=== PATIENT | female | born 1945 | race Caucasian/White ===

== ENCOUNTER 2016-12-03 13:02 | Emergency (ER) | payer OTHER ==
--- NOTE | 2016-12-03 14:10 | DIAGNOSTIC IMAGING REPORT ---
PROCEDURE: CT HEAD WITHOUT CONTRAST INDICATION: STROKE, confusion TECHNIQUE: Axial CT images were acquired through the head. Coronal and sagittal reformations were created. COMPARISON: None. FINDINGS: Subtle changes of loss of sherwood-white matter differentiation in the left parietal region. No mass effect or midline shift. No hemorrhage. Mild cerebral cortical atrophy. Moderate to prominent patchy hypodensity in the periventricular and subcortical white matter. Focal left frontal cortical defect and white matter gliosis. Small right caudate head lacunar infarct. Ventricles are normal in size, shape and position. Mild calcific atherosclerosis of the intracranial internal carotid arteries. Right frontotemporal craniotomy defect and left frontoparietal craniotomy defect with fixation hardware. The paranasal sinuses and mastoid air cells are normally aerated. The extracranial soft tissues and orbits are normal. IMPRESSION: 1. Subtle findings of possible edema in the left parietal region. No hemorrhage or mass effect. MRI is recommended. 2. Evidence of prior left frontal cortical infarct and a small right caudate head lacunar infarct superimposed on moderate to prominent chronic small vessel ischemic changes in the white matter. 3. Bilateral craniotomy defects. 4. Findings discussed with Dr. Thomas at [address] scans at this facility use dose modulation, iterative reconstruction, and/or weight-based dosing when appropriate to reduce radiation dose to as low as reasonably achievable.
--- NOTE | 2016-12-03 16:04 | DIAGNOSTIC IMAGING REPORT ---
PROCEDURE: MR BRAIN WITHOUT CONTRAST INDICATION: CVA TECHNIQUE: Multiplanar multisequence MRI imaging of the brain without contrast. COMPARISON: Head CT same date FINDINGS: Atrophy with periventricular small-vessel ischemic disease. There is an old lacunar infarct in the caudate on the right. No restricted diffusion to suggest acute ischemia. No evidence of acute or chronic intraparenchymal or extra-axial hemorrhage. No mass, mass effect, or midline shift. Bilateral craniotomy defects The sinuses are normally aerated. Visible extracranial soft tissues including the orbits are normal. IMPRESSION: 1. Atrophy with periventricular small-vessel ischemic disease. 2. No acute infarct. 3. Results were called to Martha at 04:00 p.m.
--- NOTE | 2016-12-03 16:13 | ED CLINICAL REPORT ---
Clinical Report - Physicians/Mid Levels [facility] [address] [place] [place] [address] 12/03/2016 13:03 Patient: DAHIANA ROJAS Time Seen: 13:15. Arrived- By private vehicle. Historian- patient. HISTORY OF PRESENT ILLNESS Chief Complaint: WEAKNESS. The patient has had weakness, (PT states she did not feel any different than usual, but her visiting nurse felt that the pt seemed weaker than normal yesterday. When the nurse saw the pt again today, she felt that the pt still seemed to have increased L-sided deficits, and called EMS. Pt states she feels fine.). No numbness, tingling, impaired speech or swallowing or visual disturbance. She has had difficulty walking (chronically--not worsened). She has had a recent fall (about 1 week ago). This started yesterday and is now gone. At its maximum deficit described as mild. When seen in the E.D., deficit described as mild. No dizziness, altered mental status, seizure or blackouts. Usually is alert and oriented X3. She usually walks using a walker. 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 She states that it is mainly her face and her left lower extremity that are affected.). Recent medical care: Not recently seen/assessed. REVIEW OF SYSTEMS No fever, headache, head injury, chest pain or difficulty breathing. No cough, sputum production, sore throat, abdominal pain or nausea. No diarrhea, black stools, difficulty with urination, skin rash or enlarged lymph nodes. No joint pain, vomiting, bloody stools or back pain. All systems otherwise negative, except as recorded above. PAST HISTORY Problems: Hypercholesterolemia. Constipation. Hypertension. Seizure. CVA - Cerebrovascular Accident. Additional Surgeries: Appendectomy. Craniotomy. Hysterectomy. Medications: ASA/Dipyrida 25/200mg BID. Metoprolol ER 50 mg Q AM. Senna 8.6 mg BID. Levetiracetam 500 mg BID. Amlodipine 10 mg Q AM. Lisinopril 40 mg Q AM. Lamotrigine 150mg BID. Atorvastatin 20 mg QHS. Allergies: No Known Drug Allergy. SOCIAL HISTORY Never smoker. No alcohol use or drug use. ADDITIONAL NOTES The nursing notes have been reviewed. PHYSICAL EXAM Vital Signs: 12/03/2016 13:07 BP: 115/65. HR: 74. RR: 16. O2 saturation: 98%. Temp: 98.3 F. Pain level now: 0/10. Have been reviewed. Appearance: Alert. No acute distress. Head: Head atraumatic. Eyes: Pupils equal, round and reactive to light. ENT: Airway intact. Neck: Normal inspection. CVS: Normal heart rate and rhythm. Heart sounds normal. Pulses normal. Respiratory: No respiratory distress. Breath sounds normal. Abdomen: Soft and nontender. Back: Normal inspection. No CVA tenderness. Skin: Skin warm and dry. Normal skin color. No rash. Normal skin turgor. Extremities: Extremities exhibit normal ROM. No lower extremity edema. Neuro: Alert. Oriented X 3. Mood/affect normal. Speech normal. Cranial nerves normal (as tested). No cerebellar findings. She has had weakness of the left face (moderate), left arm (mild) and left leg (moderate), No left hand weakness or left foot weakness. No sensory deficit. LABS, X-RAYS, AND EKG EKG: EKG time: (1319). No acute process. No acute ischemia. Normal EKG. Normal sinus rhythm. Rate: 71. Normal P waves. Normal VERONICA. Normal QRS complex. Normal axis. Normal ST and T waves, QT and QTc. Prior EKG unavailable. The study has been interpreted contemporaneously by me. The study has been independently viewed by me. The EKG appears to be a good tracing. I agree with and confirm the computer reading of the EKG. Rhythm Strip #1: Time: (1315). Rate= 74. Normal sinus rhythm. Regular rhythm. Narrow QRS complexes. No ectopy. Conduction normal. Normal ST segments and T waves. The study was interpreted by me. CT Head: (1. Subtle findings of possible edema in the left parietal region. No hemorrhage or mass effect. MRI is recommended. 2. Evidence of prior left frontal cortical infarct and a small right caudate head lacunar infarct superimposed on moderate to prominent chronic small vessel ischemic changes in the white matter. 3. Bilateral craniotomy defects. 4. Findings discussed with Dr. Thomas at [address] performed without contrast. The study was independently viewed by me, interpreted by the radiologist and contemporaneously by me and discussed with the radiologist. Prior studies were not available for comparison. MRI Brain: No acute changes. No hemorrhage. No intracranial mass. No midline shift. No hydrocephalus or bony abnormalities. Study type: MRI without contrast. The study was independently viewed by me, interpreted by the radiologist and contemporaneously by me and discussed with the radiologist. Prior studies were not available for comparison. Laboratory Tests: UA-Culture if indicated: (LILLY: 12/03/2016 13:38) ( Mscvd 12/03/2016 13:59) Final results Test Result Flag Units (Reference) URINE COLOR YELLOW URINE APPEARANCE CLEAR URINE GLUCOSE NEGATIVE (NEGATIVE) URINE BILIRUBIN NEGATIVE (NEGATIVE) URINE KETONE NEGATIVE (NEGATIVE) URINE SPECIFIC GRAVITY 1.010 (1.010-1.030) URINE PH 6.0 (5.0-8.0) URINE PROTEIN NEGATIVE (NEGATIVE) URINE UROBILINOGEN 0.2 EU/dL (0.2-1.0) URINE NITRITE NEGATIVE (NEGATIVE) URINE BLOOD TRACE-INTACT (NEGATIVE) URINE LEUK ESTERASE NEGATIVE (NEGATIVE) URINE RBC 0-1 rbc/hpf (0-1) CATH URINETRANSITIONAL EPITHELIAL CELLS 0-1/HPF URINE WBC 0-1 wbc/hpf (0-1) URINE EPITHELIAL CELLS 1-3 EPI/hpf (0-5) URINE BACTERIA TRACE (<1+) (NONE SEEN) URINE COMMENT CULT NOT INDICATED URINE CULTURES ARE SET-UP BASED ON THE FOLLOWING CRITERIA:POSITIVE NITRITEPOSITIVE LEUKOCYTE ESTERASEGREATER THAN 10 WHITE BLOOD CELLSMODERATE (2+) OR GREATER BACTERIA CBC w Diff: (LILLY: 12/03/2016 13:15) ( MsgRcvd 12/03/2016 13:34) Final results Test Result Flag Units (Reference) WHITE BLOOD COUNT 5.6 K/uL (4.5-11.5) RED BLOOD COUNT 4.03 M/uL (4.00-5.20) HEMOGLOBIN 12.4 gm/dL (12.0-16.0) HEMATOCRIT 37.9 % (36.0-46.0) MEAN CELL VOLUME 94 fL (80-100) MEAN CORPUSCULAR HGB 31 pg (26-34) MEAN CORPUSCULAR HGB CONC 33 g/dL (31-37) RED CELL DISTRIBUTION WIDTH 14.8 % (11.6-14.8) PLATELET COUNT 208 K/uL (150-400) NEUTROPHIL % 65.3 % (50-75) LYMPH % 26.4 % (25-40) MONO % 6.7 % (3-14) EOSINOPHIL % 1.2 % (0-4) BASOPHIL % 0.4 % (0-2) PT with INR: (LILLY: 12/03/2016 13:15) ( [facility] 12/03/2016 13:48) Final results Test Result Flag Units (Reference) INR 1.0 (0.8-1.2) Low Intensity Therapy: INR 1.5-2.0 PT range 18.5-23.1Mod.Intensity Therapy: INR 2.0-3.0 PT range 23.1-31.5High Intensity Therapy: INR 2.5-3.5 PT range 27.4-35.5High Intensity Therapy 2: INR 3.0-4.0 PT range 31.5-39.3 CHEM 13 PANEL: (LILLY: 12/03/2016 13:15) ( [facility] 12/03/2016 13:54) Final results Test Result Flag Units (Reference) GLUCOSE 92 mg/dL (70-110) BUN 12 mg/dL (7-18) CREATININE 1.1 mg/dL (0.6-1.3) Estimated GFR 52.04 mL/min Estimated GFR- >60 mL/min Note: Persistent reduction over 3 months in eGFR<60 mL/min/1.73 m2 defines CKD. Patients with eGFR values>=60 mL/min/1.73 m2 may also have CKD if evidence ofpersistent proteinuria. Additional information may be foundat www.kidney.org. SODIUM 143 mmol/L (136-145) POTASSIUM 4.4 mmol/L (3.5-5.1) CHLORIDE 107 mmol/L (98-107) CARBON DIOXIDE 26 mmol/L (21-32) CALCIUM 9.1 mg/dL (8.5-10.1) TOTAL PROTEIN 6.9 g/dL (6.4-8.2) ALBUMIN 3.8 g/dL (3.3-5.0) BILIRUBIN, TOTAL 0.4 mg/dL (0.0-1.0) ALKALINE PHOSPHATASE 70 U/L (46-116) AST (SGOT) 18 U/L (15-37) ALT (SGPT) 17 U/L (12-78) MAGNESIUM 2.3 mg/dL (1.8-2.4) CPK 43 U/L (24-260) TROPONIN I 0.05 ng/mL (0.00-1.5) TROPONIN REFERENCE RANGE:<0.1 NEGATIVE0.1-1.5 INDETERMINANT>1.5 POSITIVE . Pulse Oximetry: 12/03/2016 13:07 O2 saturation: 98%. (FIO2 - room air). Interpretation: normal. PROGRESS AND PROCEDURES Course of Care: The patient was feeling quite well at the time of her arrival in the emergency department. However given her history she was worked up for CVA and other possible causes of decline. Her CT scan showed findings concerning for possible edema in the left parietal region. As such the radiologist did recommend an MRI for further clarification of this finding. This was done, and showed no acute ischemia. I did feel the pt was stable for d/c home, as no emergent condition was identified. Patient counseled in person regarding the patient's stable condition, test results, diagnosis and need for follow-up. Concerns were addressed. Old medical records reviewed. Disposition: Discharged. Condition: stable. CLINICAL IMPRESSION Chronic weakness of the left face and left lower extremity. (with acute exacerbation). INSTRUCTIONS (Your MRI looks good--no new strokes!). Warnings: GENERAL WARNINGS: Return or contact your physician immediately if your condition worsens or changes unexpectedly, if not improving as expected, or if other problems arise. Your Current Medications: CONTINUE TAKING THE FOLLOWING MEDICATIONS: Amlodipine 10 mg Q AM*. ASA/Dipyrida 25/200mg BID*. Atorvastatin 20 mg QHS*. Lamotrigine 150mg BID*. Levetiracetam 500 mg BID*. Lisinopril 40 mg Q AM*. Metoprolol ER 50 mg Q AM*. Senna 8.6 mg BID*. Follow-up: Follow up with your doctor as needed. Understanding of the discharge instructions verbalized by patient. (Electronically signed by Dahiana Thomas MD 12/08/2016 21:58)
--- NOTE | 2016-12-03 16:13 | ED NURSING NOTES ---
Clinical Report - Nurses [place] [address] [place] [address] 12/03/2016 13:03 [id number] TRI[facility] Triage time 13:Dec 03 2016. Acuity: LEVEL 3. Chief Complaint: WEAKNESS, DIFFICULTY STANDING and DIFFICULTY WALKING. Alert. No acute distress. SEPSIS SCREEN: Sepsis Screen. Negative (no infection suspected/documented). SAMY COMA SCORE: Bruin Coma Scale: 15- eyes open spontaneously (4); best verbal response- oriented x 4 (5); best motor response- obeys commands (6). --13:13 Kaiser Jiménez R.N. 13:07 12/03/16. BP: 115/65. HR: 74. RR: 16. O2 saturation: 98% on room air. Temp: 98.3 F. Pain level now: 0/10. --13:13 Kaiser Jiménez R.N. Weight: 65.7 kg stated. Height/Length: 65 inches Per Patient. BMI: 24.1. --13:07 Kaiser Jiménez R.N. Medications Atorvastatin 20 mg QHS. --13:41 Kaiser Jiménez R.N. Lamotrigine 150mg BID. --13:41 Kaiser Jiménez R.N. Lisinopril 40 mg Q AM. --13:41 Kaiser Jiménez R.N. Amlodipine 10 mg Q AM. --13:41 Kaiser Jiménez R.N. Levetiracetam 500 mg BID. --13:42 Kaiser Jiménez R.N. Senna 8.6 mg BID. --13:42 Kaiser Jiménez R.N. Metoprolol ER 50 mg Q AM. --13:42 Kaiser Jiménez R.N. ASA/Dipyrida 25/200mg BID. --13:42 Kaiser Jiménez R.N. Allergies No Known Drug Allergy. --13:08 Kaiser Jiménez R.N. History Arrived by EMS. Historian: (EMS). Primary physician (Dr. Clark). This started yesterday. Patient was last known well (Yesterday afternoon). ( Pt has a hx of 2 previous CVA's, last in 2014. Pt has a baseline deficit of left-sided weakness, L facial droop. Pt went to PT yesterday and suddenly experienced a rapid decline of weakness, Pt was unable to make it to the door to buzz in her Physical Therapist d/t weakness.). ( Pt denies any new symptoms.). Treatment BRASS MOLDER: None. PAST MEDICAL HX: Two episodes of stroke last in 2014 with residual deficit. Immunizations: up-to-date. SURGERY HX: Appendectomy. Had hysterectomy. SOCIAL HX: Never smoker. No alcohol use or drug use. No infectious disease exposure. --13:13 Kaiser Jiménez R.N. SURGERY HX: Craniotomy. --15:53 Kaiser Jiménez R.N. PROBLEMS: Constipation. Hypertension. Seizure. --13:45 Kaiser Jiménez R.N. Hypercholesterolemia. --13:45 Kaiser Jiménez R.N. Interventions ID band on patient. --13:13 Kaiser Jiménez R.N. PHYSICAL ASSESSMENT To room via stretcher. GENERAL / NEURO / PSYCH: Awake. Oriented X 4. Alert. Appears in no acute distress. Speech normal. Mood/affect normal. Strength is unequal; right transportation planner is greater than the left transportation planner. She has had pre-existing weakness (Left sided generalized). HEENT: Facial asymmetry present. ( L sided facial droop (this is not new to Pt.)). RESPIRATORY: Respirations not labored. CVS: Normal sinus rhythm noted. SKIN: Skin is intact, warm and dry. --13:15 Kaiser Jiménez R.N. GENERAL / NEURO / PSYCH: NIH Stroke Scale: score 2. Performed at 13:28. Level of Consciousness: alert (0). LOC Questions: both (0). LOC Commands: both (0). Best gaze: normal (0). Visual field loss: none (0). Facial palsy: minor (1). Motor arm: no drift right arm (0) and no drift left arm (0). Motor leg: no drift right leg (0) and no drift left leg (0). Limb ataxia: none (0). Sensory loss: none (0). Aphasia: mild to moderate (1). Dysarthria: normal (0). Extinction and inattention: none (0). --13:28 Kaiser Jiménez R.N. NURSING PROGRESS NOTES The plan of care for this patient has been created. Monitoring of patient in place. Patient gowned. Head of bed elevated. Reassurance given. Two patient identifiers checked. Call light placed in reach. Side rails up x 2. Bed placed in lowest position. Patient ready for evaluation- chart flagged and ED physician notified. ( Pt stable, cooperative, EKG in progress, IV placed.). --13:15 Kaiser Jiménez R.N. Finger stick glucose: 91 mg/dL 13:24 Dec 03 2016; performed by nurse. --13:24 Kaiser Jiménez R.N. 13:24 12/03/2016 Site #1 started via IV in the right antecubital space with an 20g angiocath, with aseptic technique and good blood return; one attempt. Blood drawn: rainbow set. Labeled in the presence of the patient and sent to the lab. Saline lock flushed with 10 mL saline. --13:29 Kaiser Jiménez R.N. EKG time: (13:19). EKG was performed by a tech and shown to the ED physician. --13:39 Marlene Jay In/out catheterization. Return of less than 50 mL yellow-colored urine. She tolerated procedure well. --13:41 Kaiser Jiménez R.N. Patient transported to CT by stretcher with tech. (13:43 Dec 03 2016). --13:43 Kaiser Jiménez R.N. Patient returned from CT by stretcher with tech. (13:51 Dec 03 2016). --13:51 Kaiser Jiménez R.N. ( MRI consent forms given to patient to fill out.). --14:20 Wendy Quintero ( Pt has been resting comfortably, MRI consent obtained by RN and tech, accompanied Pt to MRI with tech.). --14:38 Kaiser Jiménez R.N. 14:00 12/03/16. BP: 104/51. HR: 72. RR: 19. O2 saturation: 100% on room air. Pain level now: 0/10. --14:39 Kaiser Jiménez R.N. 15:20. Patient returned from MRI by stretcher with nurse. --15:24 Parish Cruz R.N. Patient returned from MRI by stretcher with nurse and tech. (15:Dec 03 2016). --15:31 Kaiser Jiménez R.N. 15:33 12/03/16. BP: 107/51. HR: 68. RR: 16. O2 saturation: 100% on room air. Pain level now: 0/10. --15:33 Kaiser Jiménez R.N. ( Pt is resting comfortably, denies any needs or distress, stated that we can call her sister when it is time for her to DC, awaiting report from Radiologist.). --15:33 Kaiser Jiménez R.N. ( Orders for DC. Obtained Pt's sister's phone # to coordinate a ride home for Pt. Pt denies needs, VSS.). --16:34 Kaiser Jiménez R.N. 16:33 12/03/16. BP: 112/47. HR: 72. RR: 16. O2 saturation: 100% on room air. --16:34 Kaiser Jiménez R.N. ( Unable to contact any of Pt's family members to have them take her home. Pt does not know her 's new phone # and her sister has not answered after several phone calls, her next of kin has also not answered, no message machines available. I have discussed the option of having Pt transported via [facility]. Pt has agreed, states someone will be home to receive her when arrives. DISABILITY CASE MANAGER in the process of calling [facility] now.). --17:09 Kaiser Jiménez R.N. DISPOSITION / DISCHARGE 17:28 12/03/16. BP: 121/53. HR: 69. RR: 16. O2 saturation: 97% on room air. Temp: 97.9 F. Pain level now: 0/10. --17:29 Kaiser Jiménez R.N. ( Assisted Pt up to restroom. Pt ambulatory but very unsteady on her feet, required definite 1 person assistance.). --17:31 Kaiser Jiménez R.N. Departure time: 18:28 Dec 03 2016. ( Patient dc'd home with [facility] for ride.). --18:28 Forest Aguirre R.N. 18:24 12/03/2016 Site #1 removed upon discharge. Catheter intact. Pressure dressing applied. --18:29 Forest Aguirre R.N. Locked/Released at 12/03/2016 19:33 by Forest Aguirre R.N.
--- NOTE | 2016-12-03 16:13 | ED ORDER SUMMARY ---
..... Patient: DAHIANA ROJAS OrderSheet [facility] VisitID: [id number] [place] [address] 71y, F Registration Date/Time: 12/03/2016 ORDER SHEET Weight: 65.7 kg (stated) Allergies: No Known Drug Allergy GENERAL ORDERS: Hat Brusher Machine (Continuous) (13:12/03/2016 Duong QUIROS) (Ack 13:28 Lalito) (13:29 MCook R.N.) CT Head wo Cont Urgent (13:12/03/2016 Duong QUIROS) (Ack 13:29 Lalito) (14:25 MCook R.N.) Cardiac Panel Stat (:12/03/2016 Duong QUIROS) (Ack 13:29 Lalito) (13:29 MCook R.N.) PT with INR Urgent (13:12/03/2016 Duong QUIROS) (Ack 13:29 Lalito) (13:29 MCook R.N.) UA-Culture if indicated Urgent (13:12/03/2016 Duong QUIROS) (Ack 13:29 Lalito) (13:40 MCook R.N.) Oxygen (2 L/min) (NC) (13:12/03/2016 Duong QUIROS) (Ack 13:28 Lalito) Pulse oximeter (13:12/03/2016 Duong QUIROS) (Ack 13:28 Lalito) (13:29 MCook R.N.) EKG - ER Stat (13:12/03/2016 Duong QUIROS) (Ack 13:29 Lalito) (13:29 MCook R.N.) MRI Brain w/wo IACS wo Cont (Not Applicable) Urgent (14:12/03/2016 Duong QUIROS) (Ack 14:19 Lalito) MEDICATION ORDERS: IV FLUIDS: IV Saline Lock (13:12/03/2016 Duong QUIROS) (13:29 MCook R.N.) ORDER SHEET NOTES: [Electronically signed by Forest Aguirre R.N. (19:33 12/03/2016)] [Electronically signed by Dahiana Thomas MD (21:58 12/08/2016)] [Electronically locked/signed by Forest Aguirre R.N. (19:33 12/03/2016)]
--- NOTE | 2016-12-03 16:13 | ED ORDER SUMMARY ---
..... Patient: DAHIANA ROJAS OrderSheet [facility] VisitID: [id number] [place] [address] 71y, F Registration Date/Time: 12/03/2016 ORDER SHEET Weight: 65.7 kg (stated) Allergies: No Known Drug Allergy GENERAL ORDERS: Technical Program Manager (Continuous) (13:12/03/2016 Duong QUIROS) (Ack 13:28 Lalito) (13:29 MCook R.N.) CT Head wo Cont Urgent (13:12/03/2016 Duong QUIROS) (Ack 13:29 Lalito) (14:25 MCook R.N.) Cardiac Panel Stat (:12/03/2016 Duong QUIROS) (Ack 13:29 Lalito) (13:29 MCook R.N.) PT with INR Urgent (13:12/03/2016 Duong QUIROS) (Ack 13:29 Lalito) (13:29 MCook R.N.) UA-Culture if indicated Urgent (13:12/03/2016 Duong QUIROS) (Ack 13:29 Lalito) (13:40 MCook R.N.) Oxygen (2 L/min) (NC) (13:12/03/2016 Duong QUIROS) (Ack 13:28 Lalito) Pulse oximeter (13:12/03/2016 Duong QUIROS) (Ack 13:28 Lalito) (13:29 MCook R.N.) EKG - ER Stat (13:12/03/2016 Duong QUIROS) (Ack 13:29 Lalito) (13:29 MCook R.N.) MRI Brain w/wo IACS wo Cont (Not Applicable) Urgent (14:12/03/2016 Duong QUIROS) (Ack 14:19 Lalito) MEDICATION ORDERS: IV FLUIDS: IV Saline Lock (13:12/03/2016 Duong QUIROS) (13:29 MCook R.N.) ORDER SHEET NOTES: [Electronically signed by Forest Aguirre R.N. (19:33 12/03/2016)] [Electronically signed by Dahiana Thomas MD (21:58 12/08/2016)] [Electronically locked/signed by Forest Aguirre R.N. (19:33 12/03/2016)]
--- NOTE | 2016-12-03 16:13 | ED NURSING NOTES ---
Clinical Report - Nurses [place] [address] [place] [address] 12/03/2016 13:03 [id number] TRI[facility] Triage time 13:Dec 03 2016. Acuity: LEVEL 3. Chief Complaint: WEAKNESS, DIFFICULTY STANDING and DIFFICULTY WALKING. Alert. No acute distress. SEPSIS SCREEN: Sepsis Screen. Negative (no infection suspected/documented). SAMY COMA SCORE: Edwards Coma Scale: 15- eyes open spontaneously (4); best verbal response- oriented x 4 (5); best motor response- obeys commands (6). --13:13 Kaiser Jiménez R.N. 13:07 12/03/16. BP: 115/65. HR: 74. RR: 16. O2 saturation: 98% on room air. Temp: 98.3 F. Pain level now: 0/10. --13:13 Kaiser Jiménez R.N. Weight: 65.7 kg stated. Height/Length: 65 inches Per Patient. BMI: 24.1. --13:07 Kaiser Jiménez R.N. Medications Atorvastatin 20 mg QHS. --13:41 Kaiser Jiménez R.N. Lamotrigine 150mg BID. --13:41 Kaiser Jiménez R.N. Lisinopril 40 mg Q AM. --13:41 Kaiser Jiménez R.N. Amlodipine 10 mg Q AM. --13:41 Kaiser Jiménez R.N. Levetiracetam 500 mg BID. --13:42 Kaiser Jiménez R.N. Senna 8.6 mg BID. --13:42 Kaiser Jiménez R.N. Metoprolol ER 50 mg Q AM. --13:42 Kaiser Jiménez R.N. ASA/Dipyrida 25/200mg BID. --13:42 Kaiser Jiménez R.N. Allergies No Known Drug Allergy. --13:08 Kaiser Jiménez R.N. History Arrived by EMS. Historian: (EMS). Primary physician (Dr. Clark). This started yesterday. Patient was last known well (Yesterday afternoon). ( Pt has a hx of 2 previous CVA's, last in 2014. Pt has a baseline deficit of left-sided weakness, L facial droop. Pt went to PT yesterday and suddenly experienced a rapid decline of weakness, Pt was unable to make it to the door to buzz in her Physical Therapist d/t weakness.). ( Pt denies any new symptoms.). 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 PAST MEDICAL HX: Two episodes of stroke last in 2014 with residual deficit. Immunizations: up-to-date. SURGERY HX: Appendectomy. Had hysterectomy. SOCIAL HX: Never smoker. No alcohol use or drug use. No infectious disease exposure. --13:13 Kaiser Jiménez R.N. SURGERY HX: Craniotomy. --15:53 Kaiser Jiménez R.N. PROBLEMS: Constipation. Hypertension. Seizure. --13:45 Kaiser Jiménez R.N. Hypercholesterolemia. --13:45 Kaiser Jiménez R.N. Interventions ID band on patient. --13:13 Kaiser Jiménez R.N. PHYSICAL ASSESSMENT To room via stretcher. GENERAL / NEURO / PSYCH: Awake. Oriented X 4. Alert. Appears in no acute distress. Speech normal. Mood/affect normal. Strength is unequal; right waistline joiner overlock is greater than the left waistline joiner overlock. She has had pre-existing weakness (Left sided generalized). HEENT: Facial asymmetry present. ( L sided facial droop (this is not new to Pt.)). RESPIRATORY: Respirations not labored. CVS: Normal sinus rhythm noted. SKIN: Skin is intact, warm and dry. --13:15 Kaiser Jiménez R.N. GENERAL / NEURO / PSYCH: NIH Stroke Scale: score 2. Performed at 13:28. Level of Consciousness: alert (0). LOC Questions: both (0). LOC Commands: both (0). Best gaze: normal (0). Visual field loss: none (0). Facial palsy: minor (1). Motor arm: no drift right arm (0) and no drift left arm (0). Motor leg: no drift right leg (0) and no drift left leg (0). Limb ataxia: none (0). Sensory loss: none (0). Aphasia: mild to moderate (1). Dysarthria: normal (0). Extinction and inattention: none (0). --13:28 Kaiser Jiménez R.N. NURSING PROGRESS NOTES The plan of care for this patient has been created. Monitoring of patient in place. Patient gowned. Head of bed elevated. Reassurance given. Two patient identifiers checked. Call light placed in reach. Side rails up x 2. Bed placed in lowest position. Patient ready for evaluation- chart flagged and ED physician notified. ( Pt stable, cooperative, EKG in progress, IV placed.). --13:15 Kaiser Jiménez R.N. Finger stick glucose: 91 mg/dL 13:24 Dec 03 2016; performed by nurse. --13:24 Kaiser Jiménez R.N. 13:24 12/03/2016 Site #1 started via IV in the right antecubital space with an 20g angiocath, with aseptic technique and good blood return; one attempt. Blood drawn: rainbow set. Labeled in the presence of the patient and sent to the lab. Saline lock flushed with 10 mL saline. --13:29 Kaiser Jiménez R.N. EKG time: (13:19). EKG was performed by a tech and shown to the ED physician. --13:39 Marlene Jay In/out catheterization. Return of less than 50 mL yellow-colored urine. She tolerated procedure well. --13:41 Kaiser Jiménez R.N. Patient transported to CT by stretcher with tech. (13:43 Dec 03 2016). --13:43 Kaiser Jiménez R.N. Patient returned from CT by stretcher with tech. (13:51 Dec 03 2016). --13:51 Kaiser Jiménez R.N. ( MRI consent forms given to patient to fill out.). --14:20 Wendy Quintero ( Pt has been resting comfortably, MRI consent obtained by RN and tech, accompanied Pt to MRI with tech.). --14:38 Kaiser Jiménez R.N. 14:00 12/03/16. BP: 104/51. HR: 72. RR: 19. O2 saturation: 100% on room air. Pain level now: 0/10. --14:39 Kaiser Jiménez R.N. 15:20. Patient returned from MRI by stretcher with nurse. --15:24 Parish Cruz R.N. Patient returned from MRI by stretcher with nurse and tech. (15:Dec 03 2016). --15:31 Kaiser Jiménez R.N. 15:33 12/03/16. BP: 107/51. HR: 68. RR: 16. O2 saturation: 100% on room air. Pain level now: 0/10. --15:33 Kaiser Jiménez R.N. ( Pt is resting comfortably, denies any needs or distress, stated that we can call her sister when it is time for her to DC, awaiting report from Radiologist.). --15:33 Kaiser Jiménez R.N. ( Orders for DC. Obtained Pt's sister's phone # to coordinate a ride home for Pt. Pt denies needs, VSS.). --16:34 Kaiser Jiménez R.N. 16:33 12/03/16. BP: 112/47. HR: 72. RR: 16. O2 saturation: 100% on room air. --16:34 Kaiser Jiménez R.N. ( Unable to contact any of Pt's family members to have them take her home. Pt does not know her 's new phone # and her sister has not answered after several phone calls, her next of kin has also not answered, no message machines available. I have discussed the option of having Pt transported via [facility]. Pt has agreed, states someone will be home to receive her when arrives. [employer] TENDER HELPER in the process of calling [facility] now.). --17:09 Kaiser Jiménez R.N. DISPOSITION / DISCHARGE 17:28 12/03/16. BP: 121/53. HR: 69. RR: 16. O2 saturation: 97% on room air. Temp: 97.9 F. Pain level now: 0/10. --17:29 Kaiser Jiménez R.N. ( Assisted Pt up to restroom. Pt ambulatory but very unsteady on her feet, required definite 1 person assistance.). --17:31 Kaiser Jiménez R.N. Departure time: 18:28 Dec 03 2016. ( Patient dc'd home with [facility] ambulance for ride.). --18:28 Forest Aguirre R.N. 18:24 12/03/2016 Site #1 removed upon discharge. Catheter intact. Pressure dressing applied. --18:29 Forest Aguirre R.N. Locked/Released at 12/03/2016 19:33 by Forest Aguirre R.N.
--- NOTE | 2016-12-08 21:59 | ED DISCHARGE INSTRUCTIONS ---
Patient: DAHIANA ROJAS General Instructions [facility] VisitID: [id number] [place] [address] 71y, F Registration Date/Time: 12/03/2016 Chronic weakness of the left face and left lower extremity. (with acute exacerbation). INSTRUCTIONS (Your MRI looks good--no new strokes!). Warnings: GENERAL WARNINGS: Return or contact your physician immediately if your condition worsens or changes unexpectedly, if not improving as expected, or if other problems arise. Your Current Medications: CONTINUE TAKING THE FOLLOWING MEDICATIONS: Amlodipine 10 mg Q AM*. ASA/Dipyrida 25/200mg BID*. Atorvastatin 20 mg QHS*. Lamotrigine 150mg BID*. Levetiracetam 500 mg BID*. Lisinopril 40 mg Q AM*. Metoprolol ER 50 mg Q AM*. Senna 8.6 mg BID*. Follow-up: Follow up with your doctor as needed. Understanding of the discharge instructions verbalized by patient. ADDITIONAL INFORMATION Weakness [Uncertain Cause] Based on your exam today, the exact cause of your weakness is not certain. However, your weakness does not seem to be a sign of a serious illness at this time. Sometimes the signs of a serious illness take more time to appear. Therefore, please watch for the warning signs listed below. Home Care: 1) Rest at home today. Do not over-exert yourself. 2) Take your medicine as prescribed. 3) For the next few days, drink extra fluids (unless your doctor wants you to restrict fluids for other reasons). Do not skip meals. Follow Up with your doctor or as advised if you are not starting to feel better within TWO days. Get Prompt Medical Attention if any of the following occur: Worsening of your symptoms Chest, arm, neck, jaw or upper back pain Dizziness or fainting Trouble breathing Unable to eat or drink normal amounts Nausea, frequent vomiting, frequent diarrhea Abdominal pain Numbness or weakness of the face, one arm or one leg Slurred speech, confusion, trouble speaking, walking or seeing Blood in vomit or stool (black or red color) Fever of 100.4 F (38 C) or higher, or as directed by your healthcare provider You have been given the following additional information: Weakness, Unk Cause (Electronically signed by Dahiana Thomas MD 12/08/2016 21:58)
--- NOTE | 2016-12-08 21:59 | ED DISCHARGE INSTRUCTIONS ---
Patient: DAHIANA ROJAS General Instructions [facility] VisitID: [id number] [place] [address] 71y, F Registration Date/Time: 12/03/2016 Chronic weakness of the left face and left lower extremity. (with acute exacerbation). INSTRUCTIONS (Your MRI looks good--no new strokes!). Warnings: GENERAL WARNINGS: Return or contact your physician immediately if your condition worsens or changes unexpectedly, if not improving as expected, or if other problems arise. Your Current Medications: CONTINUE TAKING THE FOLLOWING MEDICATIONS: Amlodipine 10 mg Q AM*. ASA/Dipyrida 25/200mg BID*. Atorvastatin 20 mg QHS*. Lamotrigine 150mg BID*. Levetiracetam 500 mg BID*. Lisinopril 40 mg Q AM*. Metoprolol ER 50 mg Q AM*. Senna 8.6 mg BID*. Follow-up: Follow up with your doctor as needed. Understanding of the discharge instructions verbalized by patient. ADDITIONAL INFORMATION Weakness [Uncertain Cause] Based on your exam today, the exact cause of your weakness is not certain. However, your weakness does not seem to be a sign of a serious illness at this time. Sometimes the signs of a serious illness take more time to appear. Therefore, please watch for the warning signs listed below. Home Care: 1) Rest at home today. Do not over-exert yourself. 2) Take your medicine as prescribed. 3) For the next few days, drink extra fluids (unless your doctor wants you to restrict fluids for other reasons). Do not skip meals. Follow Up with your doctor or as advised if you are not starting to feel better within TWO days. Get Prompt Medical Attention if any of the following occur: Worsening of your symptoms Chest, arm, neck, jaw or upper back pain Dizziness or fainting Trouble breathing Unable to eat or drink normal amounts Nausea, frequent vomiting, frequent diarrhea Abdominal pain Numbness or weakness of the face, one arm or one leg Slurred speech, confusion, trouble speaking, walking or seeing Blood in vomit or stool (black or red color) Fever of 100.4 F (38 C) or higher, or as directed by your healthcare provider You have been given the following additional information: Weakness, Unk Cause (Electronically signed by Dahiana Thomas MD 12/08/2016 21:58)
--- NOTE | 2016-12-08 21:59 | ED MAR SUMMARY ---
..... Medication Administration Record [facility] [address] [place], [place] [id number] Patient: SUDHAKAR ROJAS Visit ID: [id number] 71y, F Weight: 65.7 kg Height/Length: 65 in BMI: 24.1 ALLERGIES: No Known Drug Allergy
--- NOTE | 2016-12-08 21:59 | ED MED RECONCILIATION SUMMARY ---
Patient: SUDHAKAR ROJAS Medication Reconciliation Report [facility] VisitID: [id number] [address] [place] [address] 71y, F Registration Date/Time: 12/03/2016 Weight: 65.7 kg Height/Length: 65 in. BMI: 24.1 ALLERGIES: No Known Drug Allergy The patient's Home Medications are listed below: CONTINUE TAKING THE FOLLOWING MEDICATIONS: Amlodipine 10 mg Q AM ASA/Dipyrida 25/200mg BID Atorvastatin 20 mg QHS Lamotrigine 150mg BID Levetiracetam 500 mg BID Lisinopril 40 mg Q AM Metoprolol ER 50 mg Q AM Senna 8.6 mg BID The source(s) of the original Home Medication information: Not obtained. The following Medications were given to the patient in the Emergency Department: None. The following Medications were prescribed to the patient: None.
--- NOTE | 2016-12-08 21:59 | ED MED RECONCILIATION SUMMARY ---
Patient: SUDHAKAR ROJAS Medication Reconciliation Report [facility] VisitID: [id number] [address] [place] [address] 71y, F Registration Date/Time: 12/03/2016 Weight: 65.7 kg Height/Length: 65 in. BMI: 24.1 ALLERGIES: No Known Drug Allergy The patient's Home Medications are listed below: CONTINUE TAKING THE FOLLOWING MEDICATIONS: Amlodipine 10 mg Q AM ASA/Dipyrida 25/200mg BID Atorvastatin 20 mg QHS Lamotrigine 150mg BID Levetiracetam 500 mg BID Lisinopril 40 mg Q AM Metoprolol ER 50 mg Q AM Senna 8.6 mg BID The source(s) of the original Home Medication information: Not obtained. The following Medications were given to the patient in the Emergency Department: None. The following Medications were prescribed to the patient: None.
--- NOTE | 2016-12-08 21:59 | ED MAR SUMMARY ---
..... Medication Administration Record [facility] [address], [place] [id number] Patient: SUDHAKAR ROJAS Visit ID: [id number] 71y, F Weight: 65.7 kg Height/Length: 65 in BMI: 24.1 ALLERGIES: No Known Drug Allergy
== END 2016-12-03 16:25 | disposition home or self-care (01) ==
LOC: ED SRH 13:02
DX: R29.810 Facial weakness (principal); M62.81 Muscle weakness (generalized); Z86.73 Personal history of transient ischemic attack (TIA), and cerebral infarction without residual deficits; I10 Essential (primary) hypertension; G40.909 Epilepsy, unspecified, not intractable, without status epilepticus; Z79.899 Other long term (current) drug therapy
CPT/HCPCS: 81460; 90004; 90100; 90616; 92610; 92720; 94060; 95059

== ENCOUNTER 2016-12-05 17:58 | Emergency (ER) | payer OTHER ==
--- NOTE | 2016-12-05 19:38 | DIAGNOSTIC IMAGING REPORT ---
PROCEDURE: CT HEAD WITHOUT CONTRAST INDICATION: TRAUMA/INJURY TECHNIQUE: Axial CT images were acquired through the head. Coronal and sagittal reformations were created. COMPARISON: 12/03/2016 FINDINGS: Mild cerebral cortical atrophy. Mild asymmetric left cerebellar hemisphere atrophy. Moderate to severe patchy hypodensity in the periventricular and subcortical white matter. Focal left frontal cortical and white matter defect. Right caudate head lacunar infarct. No intracranial hemorrhage or extraaxial fluid collections. Ventricles are normal in size, shape and position. There is no mass, mass effect or midline shift. The sherwood-white matter differentiation is normal. There is no edema. Mild calcific atherosclerosis of the intracranial internal carotid arteries. Bilateral frontotemporal craniotomy defects. The paranasal sinuses and mastoid air cells are normally aerated. The extracranial soft tissues and orbits are normal. IMPRESSION: 1. No CT evidence of acute intracranial process. 2. Prior left frontal cortical infarct and a small right lacunar infarct superimposed on moderate to prominent chronic small vessel ischemic changes diffusely. 3. Bilateral craniotomy defects. 4. Findings discussed with Dr. Pacheco at [address] scans at this facility use dose modulation, iterative reconstruction, and/or weight-based dosing when appropriate to reduce radiation dose to as low as reasonably achievable.
--- NOTE | 2016-12-05 19:50 | ED NURSING NOTES ---
Clinical Report - Nurses [facility] [address] [place] [address] 12/05/2016 18:00 Patient: SUDHAKAR ROJAS TRIAGE Triage time 18:00. Acuity: LEVEL 3. Chief Complaint: FALL. Alert. No acute distress. SAMY COMA SCORE: Pierre Part Coma Scale: 15- eyes open spontaneously (4); best verbal response- oriented x 4 (5); best motor response- obeys commands (6). --18:08 Shantel Walker R.N. 18:03 12/05/16. BP: 112/47. HR: 76. RR: 16. O2 saturation: 100%. Temp: 97.6 F. Pain level now 0/10. --18:08 Shantel Walker R.N. Weight: 65.7 kg stated. Height/Length: 65 inches Per Patient. BMI: 24.1. --18:03 Shantel Walker R.N. Medications Amlodipine 10 mg Q AM. ASA/Dipyrida 25/200mg BID. Atorvastatin 20 mg QHS. Lamotrigine 150mg BID. Levetiracetam 500 mg BID. Lisinopril 40 mg Q AM. Metoprolol ER 50 mg Q AM. Senna 8.6 mg BID. --18:06 Shantel Walker R.N. Allergies No Known Drug Allergy. --18:06 Shantel Walker R.N. History Primary physician (ethan). 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 denies pain. previous fall 2 days ago, also seen here in ED). This occurred just prior to arrival. Occurred at home. 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 BP: 112/50. HR: 80. O2 saturation: 98 % room air. Trauma activation: Pre-hospital notification of patient arrival was received. SOCIAL HX: Never smoker. No alcohol use or drug use. FALL RISK ASSESSMENT: Fall risk assessment completed. No fall risk identified. NUTRITIONAL RISK ASSESSMENT: The nutritional risk assessment revealed no deficiencies. FUNCTIONAL ASSESSMENT: Functional assessment: no impairments noted. LEARNING NEEDS ASSESSMENT: The learning needs assessment revealed no barriers. SKIN INTEGRITY ASSESSMENT: Skin integrity risk assessment completed. No skin integrity risk identified. --18:08 Shantel Walker R.N. PROBLEMS: Weakness. Hypercholesterolemia. Constipation. Hypertension. Seizure. CVA - Cerebrovascular Accident. --18:06 Shantel Walker R.N. ADDITIONAL SURGERIES: Appendectomy. Craniotomy. Hysterectomy. --18:06 Shantel Walker R.N. Interventions ID band on patient. To treatment room. --18:08 Shantel Walker R.N. PHYSICAL ASSESSMENT To room via stretcher. GENERAL / NEURO / PSYCH: Alert. Oriented X 4. Appears in no acute distress. RESPIRATORY: Respirations not labored. CVS: Capillary refill less than 2 seconds. GI / : Abdomen soft and nontender. EXTREMITIES: Neuro-vascular status intact to the extremity. SKIN: Skin is warm and dry. --18:10 Jahaira Castro R.N. NURSING PROGRESS NOTES Patient identifiers checked. Call light placed in reach. Side rails up x 1. Bed placed in lowest position. Brakes of bed on. --18:11 Jahaira Castro R.N. Patient transported to [place] by stretcher with [employer]. (18:43 Dec 05 2016). --18:48 Jahaira Castro R.N. 18:51 12/05/16. BP: 110/49. HR: 70. RR: 16. O2 saturation: 99%. Pain level now: 0/10. --18:53 Jahaira Castro R.N. Patient returned from VT with tech. (18:52 Dec 05 2016). --18:53 Jahaira Castro R.N. 19:57 12/05/2016 Acyclovir PO Capsules 800 mg given. Allergies verified and confirmed 5 rights. --19:57 Jahaira Castro R.N. 19:57 12/05/2016 Prednisone PO Tablets 60 mg given. Allergies verified and confirmed 5 rights. --19:57 Jahaira Castro R.N. DISPOSITION / DISCHARGE <<STRICKEN ENTRY-- Learning barriers present. --19:59 Jahaira Castro R.N. --END STRIKE>> Correction --20:00 Jahaira Castro R.N. 19:58 12/05/16. BP: 99/51. HR: 71. RR: 16. O2 saturation: 99%. Pain level now: 0/10. --19:59 Jahaira Castro R.N. Departure time: 21:Dec 05 2016. Condition at departure: unchanged. Fall risk assessment completed. Risk factors identified include dizziness and patient age greater than 65 years, history of fall and impairment of mobility and sensation. No learning barriers present. Discharge instructions provided and reviewed with the patient. Reviewed medication(s) side effects, precautions, dosing and course information. Prescription(s) given to the patient. Reviewed referral to a primary care physician. Patient verbalized understanding. Written instructions provided in Welsh. The patient was discharged home. She left the Emergency Department via ambulance and on a stretcher. --21:08 Jahaira Castro R.N. Locked/Released at 12/06/2016 9:18 by Idania Raza R.N.
--- NOTE | 2016-12-05 19:50 | ED ORDER SUMMARY ---
..... Patient: SUDHAKAR ROJAS OrderSheet [facility] VisitID: [id number] [place] [address] 71y, F Registration Date/Time: 12/05/2016 ORDER SHEET Weight: 65.7 kg (stated) Allergies: No Known Drug Allergy GENERAL ORDERS: CT Head wo Cont Urgent (18:20 12/05/2016 Lily Adam) (Ack 18:21 TBergley) (18:59 KKnebel R.N.) MEDICATION ORDERS: Prednisone PO 60 mg (NOW) (19:48 12/05/2016 Lily Adam) (19:57 KKnebel R.N.) Acyclovir PO 800 mg (NOW) (19:48 12/05/2016 Lily Adam) (19:57 KKnedoron R.N.) IV FLUIDS: ORDER SHEET NOTES: [Electronically signed by Idania Raza R.N. (09:18 12/06/2016)] [Electronically signed by Marvin Pacheco Dr. (09:12 12/13/2016)] [Electronically locked/signed by Idania Raza R.N. (09:18 12/06/2016)]
--- NOTE | 2016-12-05 19:50 | ED CLINICAL REPORT ---
Clinical Report - Physicians/Mid Levels [facility] [address] [place] [address] 12/05/2016 18:00 Patient: SUDHAKAR ROJAS Time Seen: 1814. Arrived- By ambulance. Historian- patient. HISTORY OF PRESENT ILLNESS Chief Complaint: WEAKNESS. The patient has had new onset of weakness of the right face (moderate). This started today, patient was last known well (unknown) and is still present. It was abrupt in onset and has been constant but is not gone now. At its maximum deficit described as moderate. When seen in the E.D.,deficit described as moderate. No altered mental status. Does not usually have normal mobility. She is usually alert, but disoriented to time. (reports she was told to go to the ED for facial weakness. Also reports fall without any injury or pain. States it was near bed on a carpeted floor. Reports no focal weakness except for the face. States she if feeling well. No fevers or chills. Normal appetite and has been keeping up with fluids.). Similar symptoms previously: None. Recent medical care: Not recently seen/assessed. REVIEW OF SYSTEMS No chest pain or skin rash. All systems otherwise negative, except as recorded above. PAST HISTORY See nurses notes. SOCIAL HISTORY Never smoker. No alcohol use or drug use. No recent travel. Is a local resident. ADDITIONAL NOTES The nursing notes have been reviewed. PHYSICAL EXAM Vital Signs: 12/05/2016 18:03 BP: 112/47. HR: 76. RR: 16. O2 saturation: 100%. Temp: 97.6 F. Blood pressure normal. Oxygen saturation normal. Appearance: Alert. No acute distress. Head: Head atraumatic. ENT: Normal ENT inspection. Airway intact. Pharynx normal. Neck: Normal inspection. Neck supple. No meningeal signs. CVS: Normal heart rate and rhythm. Heart sounds normal. Pulses normal. Respiratory: No respiratory distress. Breath sounds normal. Abdomen: Soft and nontender. No organomegaly. Skin: Skin warm and dry. Normal skin color. No rash. Normal skin turgor. Extremities: Extremities exhibit normal ROM. No lower extremity edema. Neuro: Alert. The patient is disoriented to time. Mood/affect normal. Speech normal. Cranial nerve deficit present, as evidenced by a left facial droop and left facial weakness. No facial numbness, dilated pupil, EOM weakness or palsy or ptosis. No visual field deficit, loss of the corneal reflex, nystagmus, uvular deviation or tongue deviation. No difficulty swallowing or trapezius weakness. No cerebellar findings. No motor deficit. No sensory deficit. Reflexes normal. (eyebrows affected). LABS, X-RAYS, AND EKG CT Head: No acute changes. No bony abnormalities, no hemorrhage, no intracranial mass and no midline shift. . Head CT performed without contrast. The study was independently viewed by me and interpreted by the radiologist. The study was discussed with the radiologist (via phone). PROGRESS AND PROCEDURES Course of Care: The patient is a pleasant 71 yo female with recent fall and facial weakness. Patient reports no injury to the head however story is questionable. Reports fall but then states to myself she was here for the facial weakness. Patient does have an isolated cranial nerve VII abnormality on exam. No other focal signs of injury. No fever. Patient is non-toxic and pleasant. Lungs are clear. Work up 2 days ago for fall reviewed. No acute abnormalities found on that work up except for UTI. CT scan will be ordered for evaluation of possible head injury or delayed bleed from prior fall. Patient is agreeable to the work up and plan. patient's work up negative. Discussed with patient her work up, diagnosis, home care, follow up, and return precautions. All questions answered. Patient expressed understanding of these instructions and was agreeable to them. Transport called for patient. Transport will be here shortly. Patient reevaluated and resting in bed no acute distress. Exam remains unchanged. Patient continued to be in no acute distress and non-toxic. Vitals normal here in the emergency department. No concern for serious bacterial infection, stroke, or head injury. Disposition: Discharged. Condition: good. CLINICAL IMPRESSION 12/05/2016 18:51 BP: 110/49. HR: 70. RR: 16. O2 saturation: 99%. Pain level now: 0/10. 12/05/2016 18:03 BP: 112/47. HR: 76. RR: 16. O2 saturation: 100%. Temp: 97.6 F. Oxygen saturation normal. 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 INSTRUCTIONS Warnings: GENERAL WARNINGS: Return or contact your physician immediately if your condition worsens or changes unexpectedly, if not improving as expected, or if other problems arise. Specifically return if pain, vomiting, bleeding, breathing difficulty or fever. Your Current Medications: CONTINUE TAKING THE FOLLOWING MEDICATIONS: Amlodipine 10 mg Q AM*. ASA/Dipyrida 25/200mg BID*. Atorvastatin 20 mg QHS*. Lamotrigine 150mg BID*. Levetiracetam 500 mg BID*. Lisinopril 40 mg Q AM*. Metoprolol ER 50 mg Q AM*. Senna 8.6 mg BID*. Prescription Medications: Acyclovir 800 mg: five times a day for 5 days. No refill. (Disp 25 caps) Prednisone 50 mg: take 1 orally every day for 5 days. Dispense five (5). No refills. OTC Medications: Lacri-Lube ophthalmic ointment (available over the counter): take according to label instructions. Follow-up: Return to the emergency department as needed. Follow up with your doctor in three days. Reason for referral: recheck today's concerns. Summary of care provided to patient via paper. Screening today revealed the patient's blood pressure to be in the normal range. The patient should follow up with a primary care provider for blood pressure management. Understanding of the discharge instructions verbalized by patient. (Electronically signed by Marvin Pacheco Dr. 12/13/2016 9:12)
--- NOTE | 2016-12-05 19:50 | ED ORDER SUMMARY ---
..... Patient: SUDHAKAR ROJAS OrderSheet [facility] VisitID: [id number] [place] [address] 71y, F Registration Date/Time: 12/05/2016 ORDER SHEET Weight: 65.7 kg (stated) Allergies: No Known Drug Allergy GENERAL ORDERS: CT Head wo Cont Urgent (18:20 12/05/2016 Lily Adam) (Ack 18:21 TBergley) (18:59 KKnebel R.N.) MEDICATION ORDERS: Prednisone PO 60 mg (NOW) (19:48 12/05/2016 Lily Adam) (19:57 KKnebel R.N.) Acyclovir PO 800 mg (NOW) (19:48 12/05/2016 Lily Adam) (19:57 KKnedoron R.N.) IV FLUIDS: ORDER SHEET NOTES: [Electronically signed by Idania Raza R.N. (09:18 12/06/2016)] [Electronically signed by Marvin Pacheco Dr. (09:12 12/13/2016)] [Electronically locked/signed by Idania Raza R.N. (09:18 12/06/2016)]
--- NOTE | 2016-12-05 19:50 | ED NURSING NOTES ---
Clinical Report - Nurses [facility] [address] [place] [address] 12/05/2016 18:00 Patient: SUDHAKAR ROJAS TRIAGE Triage time 18:00. Acuity: LEVEL 3. Chief Complaint: FALL. Alert. No acute distress. SAMY COMA SCORE: [place] Coma Scale: 15- eyes open spontaneously (4); best verbal response- oriented x 4 (5); best motor response- obeys commands (6). --18:08 Shantel Walker R.N. 18:03 12/05/16. BP: 112/47. HR: 76. RR: 16. O2 saturation: 100%. Temp: 97.6 F. Pain level now 0/10. --18:08 Shantel Walker R.N. Weight: 65.7 kg stated. Height/Length: 65 inches Per Patient. BMI: 24.1. --18:03 Shantel Walker R.N. Medications Amlodipine 10 mg Q AM. ASA/Dipyrida 25/200mg BID. Atorvastatin 20 mg QHS. Lamotrigine 150mg BID. Levetiracetam 500 mg BID. Lisinopril 40 mg Q AM. Metoprolol ER 50 mg Q AM. Senna 8.6 mg BID. --18:06 Shantel Walker R.N. Allergies No Known Drug Allergy. --18:06 Shantel Walker R.N. History Primary physician (ethan). 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 denies pain. previous fall 2 days ago, also seen here in ED). This occurred just prior to arrival. Occurred at home. 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 BP: 112/50. HR: 80. O2 saturation: 98 % room air. Trauma activation: Pre-hospital notification of patient arrival was received. SOCIAL HX: Never smoker. No alcohol use or drug use. FALL RISK ASSESSMENT: Fall risk assessment completed. No fall risk identified. NUTRITIONAL RISK ASSESSMENT: The nutritional risk assessment revealed no deficiencies. FUNCTIONAL ASSESSMENT: Functional assessment: no impairments noted. LEARNING NEEDS ASSESSMENT: The learning needs assessment revealed no barriers. SKIN INTEGRITY ASSESSMENT: Skin integrity risk assessment completed. No skin integrity risk identified. --18:08 Shantel Walker R.N. PROBLEMS: Weakness. Hypercholesterolemia. Constipation. Hypertension. Seizure. CVA - Cerebrovascular Accident. --18:06 Shantel Walker R.N. ADDITIONAL SURGERIES: Appendectomy. Craniotomy. Hysterectomy. --18:06 Shantel Walker R.N. Interventions ID band on patient. To treatment room. --18:08 Shantel Walker R.N. PHYSICAL ASSESSMENT To room via stretcher. GENERAL / NEURO / PSYCH: Alert. Oriented X 4. Appears in no acute distress. RESPIRATORY: Respirations not labored. CVS: Capillary refill less than 2 seconds. GI / : Abdomen soft and nontender. EXTREMITIES: Neuro-vascular status intact to the extremity. SKIN: Skin is warm and dry. --18:10 Jahaira Castro R.N. NURSING PROGRESS NOTES Patient identifiers checked. Call light placed in reach. Side rails up x 1. Bed placed in lowest position. Brakes of bed on. --18:11 Jahaira Castro R.N. Patient transported to NH by stretcher with [employer]. (18:43 Dec 05 2016). --18:48 Jahaira Castro R.N. 18:51 12/05/16. BP: 110/49. HR: 70. RR: 16. O2 saturation: 99%. Pain level now: 0/10. --18:53 Jahaira Castro R.N. Patient returned from NH with tech. (18:52 Dec 05 2016). --18:53 Jahaira Castro R.N. 19:57 12/05/2016 Acyclovir PO Capsules 800 mg given. Allergies verified and confirmed 5 rights. --19:57 Jahaira Castro R.N. 19:57 12/05/2016 Prednisone PO Tablets 60 mg given. Allergies verified and confirmed 5 rights. --19:57 Jahaira Castro R.N. DISPOSITION / DISCHARGE <<STRICKEN ENTRY-- Learning barriers present. --19:59 Jahaira Castro R.N. --END STRIKE>> Correction --20:00 Jahaira Castro R.N. 19:58 12/05/16. BP: 99/51. HR: 71. RR: 16. O2 saturation: 99%. Pain level now: 0/10. --19:59 Jahaira Castro R.N. Departure time: 21:Dec 05 2016. Condition at departure: unchanged. Fall risk assessment completed. Risk factors identified include dizziness and patient age greater than 65 years, history of fall and impairment of mobility and sensation. No learning barriers present. Discharge instructions provided and reviewed with the patient. Reviewed medication(s) side effects, precautions, dosing and course information. Prescription(s) given to the patient. Reviewed referral to a primary care physician. Patient verbalized understanding. Written instructions provided in Luxembourgish. The patient was discharged home. She left the Emergency Department via ambulance and on a stretcher. --21:08 Jahaira Castro R.N. Locked/Released at 12/06/2016 9:18 by Idania Raza R.N.
--- NOTE | 2016-12-13 09:13 | ED MAR SUMMARY ---
..... Medication Administration Record [facility] [address] [place] [address] Patient: SUDHAKAR ROJAS Visit ID: [id number] 71y, F Weight: 65.7 kg Height/Length: 65 in BMI: 24.1 ALLERGIES: No Known Drug Allergy Given 19:12/05/2016 Jahaira Castro RTorreyNTorrey Medication Administered: PREDNISONE [PO], Dose: 60 mg Tablets PO. Medication Ordered: Prednisone PO 60 mg (NOW). Given 19:12/05/2016 Jahaira Castro RTorreyNTorrey Medication Administered: ACYCLOVIR [PO], Dose: 800 mg Capsules PO. Medication Ordered: Acyclovir PO 800 mg (NOW).
--- NOTE | 2016-12-13 09:13 | ED DISCHARGE INSTRUCTIONS ---
Patient: SUDHAKAR ROJAS General Instructions [facility] VisitID: [id number] [place] [address] 71y, F Registration Date/Time: 12/05/2016 12/05/2016 18:51 BP: 110/49. HR: 70. RR: 16. O2 saturation: 99%. Pain level now: 0/10. 12/05/2016 18:03 BP: 112/47. HR: 76. RR: 16. O2 saturation: 100%. Temp: 97.6 F. Oxygen saturation normal. 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 INSTRUCTIONS Warnings: GENERAL WARNINGS: Return or contact your physician immediately if your condition worsens or changes unexpectedly, if not improving as expected, or if other problems arise. Specifically return if pain, vomiting, bleeding, breathing difficulty or fever. Your Current Medications: CONTINUE TAKING THE FOLLOWING MEDICATIONS: Amlodipine 10 mg Q AM*. ASA/Dipyrida 25/200mg BID*. Atorvastatin 20 mg QHS*. Lamotrigine 150mg BID*. Levetiracetam 500 mg BID*. Lisinopril 40 mg Q AM*. Metoprolol ER 50 mg Q AM*. Senna 8.6 mg BID*. Prescription Medications: Acyclovir 800 mg: five times a day for 5 days. No refill. (Disp 25 caps) Prednisone 50 mg: take 1 orally every day for 5 days. Dispense five (5). No refills. OTC Medications: Lacri-Lube ophthalmic ointment (available over the counter): take according to label instructions. Follow-up: Return to the emergency department as needed. Follow up with your doctor in three days. Reason for referral: recheck today's concerns. Summary of care provided to patient via paper. Screening today revealed the patient's blood pressure to be in the normal range. The patient should follow up with a primary care provider for blood pressure management. Understanding of the discharge instructions verbalized by patient. ADDITIONAL INFORMATION Bunch's Palsy Bunch's Palsy is a problem involving the nerve that controls the muscles on one side of the face. The cause is unknown, but may be related to inflammation of the nerve. Most persons with this problem recover completely within 3-6 months. Symptoms on the involved side of the face may include: inability to close the upper eyelid, excess tearing, facial drooping with uneven mouth shape, drooling, facial numbness or pain, changes in taste, sensitivity to sound. The most serious problem is possible injury to the eye. Since you cannot blink normally, you must protect your eye from flying dust particles, wind, etc. Also, since tears cannot lubricate the eye without blinking, there is danger that the cornea (clear part in front of the colored iris) will dry out and form an ulcer. This could permanently affect vision. Home Care: Use Artificial Tears frequently during the day and at bedtime to prevent drying. These drops are available without prescription at your drug store. Wear protective glasses especially when outside to protect from flying debris. Tape the eyelid closed at bedtime with a paper tape (available at your pharmacy). This has a very mild adhesive to avoid injury to the lid. This will protect your eye from injury while you sleep. Sometimes medicines are prescribed to reduce inflammation or treat specific viral infections of the nerve. If medicines are prescribed, take them exactly as directed. Follow Up with your doctor or with an Ear/Nose/Throat specialist within the next two weeks. Get Prompt Medical Attention if any of the following occur: Redness of the eye or pus draining from the eye Change in vision or pain in the eye Appearance of headache, neck pain, fever or other unexplained symptoms Difficulty with speech or walking Weakness in one arm or leg Acyclovir Oral tablet What is this medicine? ACYCLOVIR (ay SYE kloe veer) is an antiviral medicine. It is used to treat or prevent infections caused by certain kinds of viruses. Examples of these infections include herpes and shingles. This medicine will not cure herpes. How should I use this medicine? Take this medicine by mouth with a glass of water. Follow the directions on the prescription label. You can take it with or without food. Take your medicine at regular intervals. Do not take your medicine more often than directed. Take all of your medicine as directed even if you think your are better. Do not skip doses or stop your medicine early. Talk to your internal auditor regarding the use of this medicine in children. While this drug may be prescribed for selected conditions, precautions do apply. What side effects may I notice from receiving this medicine? Side effects that you should report to your doctor or health rn primary care as soon as possible: allergic reactions like skin rash, itching or hives, swelling of the face, lips, or tongue chest pain confusion, hallucinations, tremor dark urine increased sensitivity to the sun redness, blistering, peeling or loosening of the skin, including inside the mouth seizures trouble passing urine or change in the amount of urine unusual bleeding or bruising, or pinpoint red spots on the skin unusually weak or tired yellowing of the eyes or skin Side effects that usually do not require medical attention (report to your doctor or health rn primary care if they continue or are bothersome): diarrhea fever headache nausea, vomiting stomach upset What may interact with this medicine? probenecid What if I miss a dose? If you miss a dose, take it as soon as you can. If it is almost time for your next dose, take only that dose. Do not take double or extra doses. Where should I keep my medicine? Keep out of the reach of children. Store at room temperature between 15 and 25 degrees C (59 and 77 degrees F). Throw away any unused medicine after the expiration date. What should I tell my health care provider before I take this medicine? They need to know if you have any of these conditions: kidney disease an unusual or allergic reaction to acyclovir, ganciclovir, valacyclovir, other medicines, foods, dyes, or preservatives or trying to get breast-feeding What should I watch for while using this medicine? Tell your doctor or health rn primary care if your symptoms do not improve. This medicine works best when started very early in the course of an infection. Begin treatment at the first signs of infection. Drink 6 to 8 glasses of water or fluids every day while you are taking this medicine. This will help prevent side effects. You can still pass chickenpox, shingles, or herpes to another person even while you are taking this medicine. Avoid contact with others as directed. Genital herpes is a sexually transmitted disease. Talk to your doctor about how to stop the spread of infection. Prednisone Oral tablet What is this medicine? PREDNISONE (PRED ni sone) is a corticosteroid. It is commonly used to treat inflammation of the skin, joints, lungs, and other organs. Common conditions treated include asthma, allergies, and arthritis. It is also used for other conditions, such as blood disorders and diseases of the adrenal glands. How should I use this medicine? Take this medicine by mouth with a glass of water. Follow the directions on the prescription label. Take this medicine with food. If you are taking this medicine once a day, take it in the morning. Do not take more medicine than you are told to take. Do not suddenly stop taking your medicine because you may develop a severe reaction. Your doctor will tell you how much medicine to take. If your doctor wants you to stop the medicine, the dose may be slowly lowered over time to avoid any side effects. Talk to your internal auditor regarding the use of this medicine in children. Special care may be needed. What side effects may I notice from receiving this medicine? Side effects that you should report to your doctor or health rn primary care as soon as possible: allergic reactions like skin rash, itching or hives, swelling of the face, lips, or tongue changes in emotions or moods changes in vision depressed mood eye pain fever or chills, cough, sore throat, pain or difficulty passing urine increased thirst swelling of ankles, feet Side effects that usually do not require medical attention (report to your doctor or health rn primary care if they continue or are bothersome): confusion, excitement, restlessness headache nausea, vomiting skin problems, acne, thin and shiny skin trouble sleeping weight gain What may interact with this medicine? Do not take this medicine with any of the following medications: metyrapone mifepristone This medicine may also interact with the following medications: aminoglutethimide amphotericin B aspirin and aspirin-like medicines barbiturates certain medicines for diabetes, like glipizide or glyburide cholestyramine cholinesterase inhibitors cyclosporine digoxin diuretics ephedrine female hormones, like estrogens and control pills isoniazid ketoconazole NSAIDS, medicines for pain and inflammation, like ibuprofen or naproxen phenytoin rifampin toxoids vaccines warfarin What if I miss a dose? If you miss a dose, take it as soon as you can. If it is almost time for your next dose, talk to your doctor or health rn primary care. You may need to miss a dose or take an extra dose. Do not take double or extra doses without advice. Where should I keep my medicine? Keep out of the reach of children. Store at room temperature between 15 and 30 degrees C (59 and 86 degrees F). Protect from light. Keep container tightly closed. Throw away any unused medicine after the expiration date. What should I tell my health care provider before I take this medicine? They need to know if you have any of these conditions: Girdletree's syndrome diabetes glaucoma heart disease high blood pressure infection (especially a virus infection such as chickenpox, cold sores, or herpes) kidney disease liver disease mental illness myasthenia gravis osteoporosis seizures stomach or intestine problems thyroid disease an unusual or allergic reaction to lactose, prednisone, other medicines, foods, dyes, or preservatives or trying to get breast-feeding What should I watch for while using this medicine? Visit your doctor or health rn primary care for regular checks on your progress. If you are taking this medicine over a prolonged period, carry an identification card with your name and address, the type and dose of your medicine, and your doctor's name and address. This medicine may increase your risk of getting an infection. Tell your doctor or health rn primary care if you are around anyone with measles or chickenpox, or if you develop sores or blisters that do not heal properly. If you are going to have surgery, tell your doctor or health rn primary care that you have taken this medicine within the last twelve months. Ask your doctor or health rn primary care about your diet. You may need to lower the amount of salt you eat. This medicine may affect blood sugar levels. If you have diabetes, check with your doctor or health rn primary care before you change your diet or the dose of your diabetic medicine. You have been given the following additional information: Bunch's Palsy Acyclovir Oral tablet Prednisone Oral tablet (Electronically signed by Marvin Pacheco Dr. 12/13/2016 9:12)
--- NOTE | 2016-12-13 09:13 | ED MAR SUMMARY ---
..... Medication Administration Record [facility] [address] [place] [address] Patient: SUDHAKAR ROJAS Visit ID: [id number] 71y, F Weight: 65.7 kg Height/Length: 65 in BMI: 24.1 ALLERGIES: No Known Drug Allergy Given 19:12/05/2016 Jahaira Castro RTorreyNTorrey Medication Administered: PREDNISONE [PO], Dose: 60 mg Tablets PO. Medication Ordered: Prednisone PO 60 mg (NOW). Given 19:12/05/2016 Jahaira Castro RTorreyNTorrey Medication Administered: ACYCLOVIR [PO], Dose: 800 mg Capsules PO. Medication Ordered: Acyclovir PO 800 mg (NOW).
--- NOTE | 2016-12-13 09:13 | ED DISCHARGE INSTRUCTIONS ---
Patient: SUDHAKAR ROJAS General Instructions [facility] VisitID: [id number] [place] [address] 71y, F Registration Date/Time: 12/05/2016 12/05/2016 18:51 BP: 110/49. HR: 70. RR: 16. O2 saturation: 99%. Pain level now: 0/10. 12/05/2016 18:03 BP: 112/47. HR: 76. RR: 16. O2 saturation: 100%. Temp: 97.6 F. Oxygen saturation normal. 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 INSTRUCTIONS Warnings: GENERAL WARNINGS: Return or contact your physician immediately if your condition worsens or changes unexpectedly, if not improving as expected, or if other problems arise. Specifically return if pain, vomiting, bleeding, breathing difficulty or fever. Your Current Medications: CONTINUE TAKING THE FOLLOWING MEDICATIONS: Amlodipine 10 mg Q AM*. ASA/Dipyrida 25/200mg BID*. Atorvastatin 20 mg QHS*. Lamotrigine 150mg BID*. Levetiracetam 500 mg BID*. Lisinopril 40 mg Q AM*. Metoprolol ER 50 mg Q AM*. Senna 8.6 mg BID*. Prescription Medications: Acyclovir 800 mg: five times a day for 5 days. No refill. (Disp 25 caps) Prednisone 50 mg: take 1 orally every day for 5 days. Dispense five (5). No refills. OTC Medications: Lacri-Lube ophthalmic ointment (available over the counter): take according to label instructions. Follow-up: Return to the emergency department as needed. Follow up with your doctor in three days. Reason for referral: recheck today's concerns. Summary of care provided to patient via paper. Screening today revealed the patient's blood pressure to be in the normal range. The patient should follow up with a primary care provider for blood pressure management. Understanding of the discharge instructions verbalized by patient. ADDITIONAL INFORMATION Bunch's Palsy Bunch's Palsy is a problem involving the nerve that controls the muscles on one side of the face. The cause is unknown, but may be related to inflammation of the nerve. Most persons with this problem recover completely within 3-6 months. Symptoms on the involved side of the face may include: inability to close the upper eyelid, excess tearing, facial drooping with uneven mouth shape, drooling, facial numbness or pain, changes in taste, sensitivity to sound. The most serious problem is possible injury to the eye. Since you cannot blink normally, you must protect your eye from flying dust particles, wind, etc. Also, since tears cannot lubricate the eye without blinking, there is danger that the cornea (clear part in front of the colored iris) will dry out and form an ulcer. This could permanently affect vision. Home Care: Use Artificial Tears frequently during the day and at bedtime to prevent drying. These drops are available without prescription at your drug store. Wear protective glasses especially when outside to protect from flying debris. Tape the eyelid closed at bedtime with a paper tape (available at your pharmacy). This has a very mild adhesive to avoid injury to the lid. This will protect your eye from injury while you sleep. Sometimes medicines are prescribed to reduce inflammation or treat specific viral infections of the nerve. If medicines are prescribed, take them exactly as directed. Follow Up with your doctor or with an Ear/Nose/Throat specialist within the next two weeks. Get Prompt Medical Attention if any of the following occur: Redness of the eye or pus draining from the eye Change in vision or pain in the eye Appearance of headache, neck pain, fever or other unexplained symptoms Difficulty with speech or walking Weakness in one arm or leg Acyclovir Oral tablet What is this medicine? ACYCLOVIR (ay SYE kloe veer) is an antiviral medicine. It is used to treat or prevent infections caused by certain kinds of viruses. Examples of these infections include herpes and shingles. This medicine will not cure herpes. How should I use this medicine? Take this medicine by mouth with a glass of water. Follow the directions on the prescription label. You can take it with or without food. Take your medicine at regular intervals. Do not take your medicine more often than directed. Take all of your medicine as directed even if you think your are better. Do not skip doses or stop your medicine early. Talk to your dry pan feeder regarding the use of this medicine in children. While this drug may be prescribed for selected conditions, precautions do apply. What side effects may I notice from receiving this medicine? Side effects that you should report to your doctor or health wound care coordinator as soon as possible: allergic reactions like skin rash, itching or hives, swelling of the face, lips, or tongue chest pain confusion, hallucinations, tremor dark urine increased sensitivity to the sun redness, blistering, peeling or loosening of the skin, including inside the mouth seizures trouble passing urine or change in the amount of urine unusual bleeding or bruising, or pinpoint red spots on the skin unusually weak or tired yellowing of the eyes or skin Side effects that usually do not require medical attention (report to your doctor or health wound care coordinator if they continue or are bothersome): diarrhea fever headache nausea, vomiting stomach upset What may interact with this medicine? probenecid What if I miss a dose? If you miss a dose, take it as soon as you can. If it is almost time for your next dose, take only that dose. Do not take double or extra doses. Where should I keep my medicine? Keep out of the reach of children. Store at room temperature between 15 and 25 degrees C (59 and 77 degrees F). Throw away any unused medicine after the expiration date. What should I tell my health care provider before I take this medicine? They need to know if you have any of these conditions: kidney disease an unusual or allergic reaction to acyclovir, ganciclovir, valacyclovir, other medicines, foods, dyes, or preservatives or trying to get breast-feeding What should I watch for while using this medicine? Tell your doctor or health wound care coordinator if your symptoms do not improve. This medicine works best when started very early in the course of an infection. Begin treatment at the first signs of infection. Drink 6 to 8 glasses of water or fluids every day while you are taking this medicine. This will help prevent side effects. You can still pass chickenpox, shingles, or herpes to another person even while you are taking this medicine. Avoid contact with others as directed. Genital herpes is a sexually transmitted disease. Talk to your doctor about how to stop the spread of infection. Prednisone Oral tablet What is this medicine? PREDNISONE (PRED ni sone) is a corticosteroid. It is commonly used to treat inflammation of the skin, joints, lungs, and other organs. Common conditions treated include asthma, allergies, and arthritis. It is also used for other conditions, such as blood disorders and diseases of the adrenal glands. How should I use this medicine? Take this medicine by mouth with a glass of water. Follow the directions on the prescription label. Take this medicine with food. If you are taking this medicine once a day, take it in the morning. Do not take more medicine than you are told to take. Do not suddenly stop taking your medicine because you may develop a severe reaction. Your doctor will tell you how much medicine to take. If your doctor wants you to stop the medicine, the dose may be slowly lowered over time to avoid any side effects. Talk to your dry pan feeder regarding the use of this medicine in children. Special care may be needed. What side effects may I notice from receiving this medicine? Side effects that you should report to your doctor or health wound care coordinator as soon as possible: allergic reactions like skin rash, itching or hives, swelling of the face, lips, or tongue changes in emotions or moods changes in vision depressed mood eye pain fever or chills, cough, sore throat, pain or difficulty passing urine increased thirst swelling of ankles, feet Side effects that usually do not require medical attention (report to your doctor or health wound care coordinator if they continue or are bothersome): confusion, excitement, restlessness headache nausea, vomiting skin problems, acne, thin and shiny skin trouble sleeping weight gain What may interact with this medicine? Do not take this medicine with any of the following medications: metyrapone mifepristone This medicine may also interact with the following medications: aminoglutethimide amphotericin B aspirin and aspirin-like medicines barbiturates certain medicines for diabetes, like glipizide or glyburide cholestyramine cholinesterase inhibitors cyclosporine digoxin diuretics ephedrine female hormones, like estrogens and control pills isoniazid ketoconazole NSAIDS, medicines for pain and inflammation, like ibuprofen or naproxen phenytoin rifampin toxoids vaccines warfarin What if I miss a dose? If you miss a dose, take it as soon as you can. If it is almost time for your next dose, talk to your doctor or health wound care coordinator. You may need to miss a dose or take an extra dose. Do not take double or extra doses without advice. Where should I keep my medicine? Keep out of the reach of children. Store at room temperature between 15 and 30 degrees C (59 and 86 degrees F). Protect from light. Keep container tightly closed. Throw away any unused medicine after the expiration date. What should I tell my health care provider before I take this medicine? They need to know if you have any of these conditions: Reeders's syndrome diabetes glaucoma heart disease high blood pressure infection (especially a virus infection such as chickenpox, cold sores, or herpes) kidney disease liver disease mental illness myasthenia gravis osteoporosis seizures stomach or intestine problems thyroid disease an unusual or allergic reaction to lactose, prednisone, other medicines, foods, dyes, or preservatives or trying to get breast-feeding What should I watch for while using this medicine? Visit your doctor or health wound care coordinator for regular checks on your progress. If you are taking this medicine over a prolonged period, carry an identification card with your name and address, the type and dose of your medicine, and your doctor's name and address. This medicine may increase your risk of getting an infection. Tell your doctor or health wound care coordinator if you are around anyone with measles or chickenpox, or if you develop sores or blisters that do not heal properly. If you are going to have surgery, tell your doctor or health wound care coordinator that you have taken this medicine within the last twelve months. Ask your doctor or health wound care coordinator about your diet. You may need to lower the amount of salt you eat. This medicine may affect blood sugar levels. If you have diabetes, check with your doctor or health wound care coordinator before you change your diet or the dose of your diabetic medicine. You have been given the following additional information: Bunch's Palsy Acyclovir Oral tablet Prednisone Oral tablet (Electronically signed by Marvin Pacheco Dr. 12/13/2016 9:12)
--- NOTE | 2016-12-13 09:13 | ED MED RECONCILIATION SUMMARY ---
Patient: SUDHAKAR ROJAS Medication Reconciliation Report [facility] VisitID: [id number] [place] [address] 71y, F Registration Date/Time: 12/05/2016 Weight: 65.7 kg Height/Length: 65 in. BMI: 24.1 ALLERGIES: No Known Drug Allergy The patient's Home Medications are listed below: CONTINUE TAKING THE FOLLOWING MEDICATIONS: Amlodipine 10 mg Q AM ASA/Dipyrida 25/200mg BID Atorvastatin 20 mg QHS Lamotrigine 150mg BID Levetiracetam 500 mg BID Lisinopril 40 mg Q AM Metoprolol ER 50 mg Q AM Senna 8.6 mg BID The source(s) of the original Home Medication information: Not obtained. The following Medications were given to the patient in the Emergency Department: Acyclovir [PO] PO 800 mg, administered: 12/05/2016 7:57:00 PM Prednisone [PO] PO 60 mg, administered: 12/05/2016 7:57:00 PM The following Medications were prescribed to the patient: Acyclovir 800 mg: five times a day for 5 days. No refill.(Disp 25 caps) -- Marvin Pacheco Dr. Lacri-Lube ophthalmic ointment (available over the counter): take according to label instructions. -- Marvin Pacheco Dr. Prednisone 50 mg: take 1 orally every day for 5 days. Dispense five (5). No refills. -- Marvin Pacheco Dr.
--- NOTE | 2016-12-13 09:13 | ED MED RECONCILIATION SUMMARY ---
Patient: SUDHAKAR ROJAS Medication Reconciliation Report [facility] VisitID: [id number] [place] [address] 71y, F Registration Date/Time: 12/05/2016 Weight: 65.7 kg Height/Length: 65 in. BMI: 24.1 ALLERGIES: No Known Drug Allergy The patient's Home Medications are listed below: CONTINUE TAKING THE FOLLOWING MEDICATIONS: Amlodipine 10 mg Q AM ASA/Dipyrida 25/200mg BID Atorvastatin 20 mg QHS Lamotrigine 150mg BID Levetiracetam 500 mg BID Lisinopril 40 mg Q AM Metoprolol ER 50 mg Q AM Senna 8.6 mg BID The source(s) of the original Home Medication information: Not obtained. The following Medications were given to the patient in the Emergency Department: Acyclovir [PO] PO 800 mg, administered: 12/05/2016 7:57:00 PM Prednisone [PO] PO 60 mg, administered: 12/05/2016 7:57:00 PM The following Medications were prescribed to the patient: Acyclovir 800 mg: five times a day for 5 days. No refill.(Disp 25 caps) -- Marvin Pacheco Dr. Lacri-Lube ophthalmic ointment (available over the counter): take according to label instructions. -- Marvin Pacheco Dr. Prednisone 50 mg: take 1 orally every day for 5 days. Dispense five (5). No refills. -- Marvin Pacheco Dr.
== END 2016-12-05 21:05 | disposition home or self-care (01) ==
LOC: ED SRH 17:58
DX: G51.0 Bell's palsy (principal); Z91.81 History of falling

== ENCOUNTER 2016-12-09 22:42 | Emergency (ER) | payer OTHER ==
--- NOTE | 2016-12-10 00:56 | ED NURSING NOTES ---
Clinical Report - Nurses [facility] [address] [place] [address] 12/09/2016 22:43 [id number] Triage time 22:45 Apr 13 2016. Acuity: LEVEL 3. Chief Complaint: WEAKNESS. SEPSIS SCREEN: Sepsis Screen: negative. Negative (no infection suspected/documented). W[place]TER COMA SCORE: [place] Coma Scale: 15- eyes open spontaneously (4); best verbal response- oriented x 4 (5); best motor response- obeys commands (6). --22:51 Sayda Gould 22:44 12/09/16. BP: 111/68. HR: 73. RR: 20. O2 saturation: 100% on room air. Temp: 98.8 F (oral). Pain level now: 0/10. --22:51 Sayda Gould. Weight: 68 kg stated. Height/Length: 65 inches Per Patient. BMI: 25. --22:47 Sayda Gould. Medications Amlodipine 10 mg Q AM. ASA/Dipyrida 25/200mg BID. Atorvastatin 20 mg QHS. --22:47 Sayda Gould Lamotrigine 150mg BID. Levetiracetam 500 mg BID. Lisinopril 40 mg Q AM. Metoprolol ER 50 mg Q AM. Senna 8.6 mg BID. --22:47 Sayda Gould. Medication/allergy information source: the patient. --22:51 Sayda Gould. Allergies No Known Drug Allergy. --22:47 Sayda Guold. History Arrived by EMS. Historian: patient. Unaccompanied. Primary physician (Elsy). Onset. (1 weeks). ( Patient reports that while she was getting ready for bed she began to have weakness in her legs and then felt nauseated. Her called EMS. He reported mental status changes over the last week. Patient is alert and oriented x 4 here in ER. Patient has history of stroke and presents with left sided facial droop and extremity weakness which is her baseline.). 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 EMS treatment AGRICULTURAL SYSTEMS SPECIALIST verbally communicated and report reviewed. See report. BP: 108 / palp. HR: 72. O2 saturation: 99 %. ( Blood sugar 119). PAST MEDICAL HX: Immunizations: up-to-date. The patient is post-menopausal. SOCIAL HX: Never smoker. No alcohol use or drug use. No infectious disease exposure. ABUSE ASSESSMENT: No report of abuse. NUTRITIONAL RISK ASSESSMENT: The nutritional risk assessment revealed no deficiencies. LEARNING NEEDS ASSESSMENT: The learning needs assessment revealed no barriers. FALL RISK ASSESSMENT: Fall risk assessment completed. Risk factors identified include patient medications, age greater than 65 years, history of fall and impairment of mobility. Fall interventions initiated. Patient placed on stretcher. Side rails up x2. Brakes on Bed in low position. Call light in reach of patient. Instructed not to get up without assistance. FUNCTIONAL ASSESSMENT: Functional assessment performed: requires assistance with the activities of daily living. SKIN INTEGRITY ASSESSMENT: Skin integrity risk assessment completed. No skin integrity risk identified. --22:51 Sayda Gould. PROBLEMS: Bunch's Palsy. Weakness. Hypercholesterolemia. Constipation. Hypertension. Seizure. CVA - Cerebrovascular Accident. --22:47 Sayda Gould. ADDITIONAL SURGERIES: Appendectomy. Craniotomy. Hysterectomy. --22:47 Sayda Gould. Interventions ID band on patient. To treatment room. --22:51 Sayda Gould. PHYSICAL ASSESSMENT To room via stretcher. Patient gowned. GENERAL / NEURO / PSYCH: Alert. Oriented X 4 and 4. Awake. Alert. Appears in no acute distress. Speech normal. Mood/affect normal. No motor deficit. No sensory deficit. HEENT: Left-sided facial weakness (Pre-existing). Mucous membranes are pink. RESPIRATORY: Respirations not labored. Breath sounds within normal limits. CVS: Normal sinus rhythm noted. GI / : Abdomen soft and nontender. SKIN: Skin is warm and dry. --22:52 Sayda Gould. NURSING PROGRESS NOTES Pulse oximeter and NIBP monitor placed on patient; monitor alarms on. Patient gowned. Reassurance given to the patient. Two patient identifiers checked. Call light placed in reach. Side rails up x 1. Bed placed in lowest position. Brakes of bed on. Patient ready for evaluation- chart flagged and ED physician notified. --22:52 Sayda Gould 22:53 12/09/2016 Site #1 started via IV in the left antecubital space with an 18g angiocath, with aseptic technique and good blood return; one attempt. Blood drawn: rainbow set. Labeled in the presence of the patient and sent to the lab. Saline lock flushed with 10 mL saline. --22:53 Sayda Gould ( Patient reports when her eyes are closed she feels she is moving back and forth. She reports this sensation subsides when her eyes are open.). --22:57 Sayda Gould 14 fr in/out catheterization. During procedure hand hygiene observed and sterile equipment and aseptic technique used. Return of less than 50 mL yellow-colored clear urine. She tolerated procedure well. --22:57 Sayda Gould 23:31 12/09/16. BP: 106/59. HR: 65. RR: 20. O2 saturation: 98%. --23:32 Sayda Gould ( Patient resting quietly, no complaints at this time.). --00:07 Sayda Gould 00:21 12/10/2016 Bactrim DS (Sulfamethoxazole-TMP DS) PO Tablets 1 tab given. Allergies verified and confirmed 5 rights. --00:26 Sayda Gould 01:14 12/10/16. ( Patient address and phone number are incorrect on her face sheet. Patient asked about her address or phone number, address provided is not correct and the phone number belongs to someone else. RN to attempt to find correct address and arrange transport for patient.). --01:14 Sayda Gould ( Patient contacted via phone and he was unsure of his address. He was able to provide the staff with a number for his daughter. Daughter was called and reports the patient and are in a safe situation at their home. Both patient and have dementia and are unsure of their address, phone numbers or other information. Patient husbands daughter reports that there are plans to move the patient to assisted living.). --02:10 Sayda Gould Contact made with patients step-daughter "Gauri". Gauri states that the patients living situation is safe and that the family is currently working on obtaining the patient and her spouse additional help. Gauri agreed to check on patient/spouse tomorrow via telephone. --02:14 Denice Andrews, ER Tech1 ( Online report made to Adult Protective Services regarding patients' living situation. Patient living with in an apartment. is wheelchair bound and has dementia. Patient also suffers from dementia. Patient and patient unsure of their address, contact phone numbers or emergency contact persons. Patient reports no consistent means of transportation or care management.). --05:15 Sadya Gould. DISPOSITION / DISCHARGE 01:49 12/10/16. BP: 115/62. HR: 66. RR: 20. O2 saturation: 97% on room air. Temp: 98.9 F (oral). Pain level now: 01/05. --01:51 Sayda Gould Condition at departure: stable. The goals identified in the patient's plan of care were met. Learning barriers present. Ability to learn limited by dementia. Reviewed medication(s) side effects, precautions, dosing and course information. Prescription(s) given to the patient. Reviewed need for increased fluid intake. Patient verbalized understanding. Written instructions provided in [place]. ( Discharge instructions provided to EMS. Patient daughter contacted to ensure that the patient receives follow up.). --01:51 Sayda Gould 02:11 12/10/2016 Site #1 removed upon discharge. Catheter intact. Bandaid applied. --02:11 Sayda Gould The patient was discharged by the physician. She was discharged home and accompanied by EMS. She left the Emergency Department via ambulance and on a stretcher. Driving (Ambulance service). --02:11 Sayda Gould 02:28 12/10/16. ( Patient vomited while getting ready to leave. Provider notified. Patient assisted with cleanup). --02:28 Sayda Gould Departure time: 02:40 Dec 10 2016. --02:50 Sayda Gould. Locked/Released at 12/18/2016 19:06 by aSyda Gould,
--- NOTE | 2016-12-10 00:56 | ED ORDER SUMMARY ---
..... Patient: DAHIANA ROJAS OrderSheet [facility] VisitID: [id number] [place] [address] 71y, F Registration Date/Time: 12/09/2016 ORDER SHEET Weight: 68.0 kg (stated) Allergies: No Known Drug Allergy GENERAL ORDERS: UA-Culture if indicated Urgent (22:53 12/09/2016 Duong QUIROS) (Ack 22:55 AMcQuoid ER Tech1) (Ack 22:55 HSoule) (23:33 HSoule) CBC w Diff Urgent (22:53 12/09/2016 Duong QUIROS) (Ack 22:55 AMcQuoid ER Tech1) (Ack 22:55 HSoule) (23:33 HSoule) CMP Urgent (22:53 12/09/2016 Duong QUIROS) (Ack 22:55 AMcQuoid ER Tech1) (Ack 22:55 HSoule) (23:33 HSoule) Urine Drug Screen Urgent (22:57 12/09/2016 Duong QUIROS) (Ack 22:59 AMcQuoid ER Tech1) (23:33 HSoule) MEDICATION ORDERS: Bactrim DS PO (Tablet 800-160 mg) 1 tab (NOW) (00:15 12/10/2016 Duong QUIROS) (Ack 0:18 HSoule) (0:26 HSoule) IV FLUIDS: IV Saline Lock (22:53 12/09/2016 Duong QUIROS) (22:56 HSoule) ORDER SHEET NOTES: [Electronically signed by Dahiana Thomas MD (19:27 12/13/2016)] [Electronically signed by aSyda Gould (19:06 12/18/2016)] [Electronically locked/signed by Sayda Gould (19:12/18/2016)]
--- NOTE | 2016-12-10 00:56 | ED CLINICAL REPORT ---
Clinical Report - Physicians/Mid Levels [facility] [address] [place] [address] 12/09/2016 22:43 Patient: DAHIANA ROJAS Time Seen: 22:52. Arrived- By ambulance. Historian- patient and EMS personnel. HISTORY OF PRESENT ILLNESS Chief Complaint: CONFUSION. The patient has been confused. This started several weeks ago and is still present. The patient was not found unresponsive. Not a long-term resident. History of mild chronic dementia. No alcohol recently or recent drug use. Dextro stick was not low prior to arrival. The patient has had weakness of the left face (moderate), left arm (mild) and left leg (mild), (chronically). No numbness or recent fall. The patient is usually alert, but disoriented to time; she usually walks only with assistance. (Pt has no complaints.). Similar symptoms previously: Recent medical care: The patient was seen recently at this facility in the emergency department. ( PT has been seen twice in the past week for the same sx. She has had extensive work-up, including brain MRI, all of which has been unremarkable.). REVIEW OF SYSTEMS No fever, headache, head injury, dizziness or chest pain. No difficulty breathing, cough, sputum production, blurred vision or sore throat. No abdominal pain, nausea, diarrhea, black stools or difficulty with urination. No skin rash, joint pain, vomiting, bloody stools or back pain. All systems otherwise negative, except as recorded above. PAST HISTORY Problems: Bunch's Palsy. Weakness. Hypercholesterolemia. Constipation. Hypertension. Seizure. CVA - Cerebrovascular Accident. Additional Surgeries: Appendectomy. Craniotomy. Hysterectomy. Medications: Lamotrigine 150mg BID. Levetiracetam 500 mg BID. Lisinopril 40 mg Q AM. Metoprolol ER 50 mg Q AM. Senna 8.6 mg BID. Amlodipine 10 mg Q AM. ASA/Dipyrida 25/200mg BID. Atorvastatin 20 mg QHS. Allergies: No Known Drug Allergy. SOCIAL HISTORY Never smoker. No alcohol use or drug use. ADDITIONAL NOTES The nursing notes have been reviewed. PHYSICAL EXAM Vital Signs: 12/09/2016 22:44 BP: 111/68. HR: 73. RR: 20. O2 saturation: 100%. Temp: 98.8 F. Pain level now: 0/10. Have been reviewed. Appearance: Alert. No acute distress. Head: Head atraumatic. ENT: Normal ENT inspection. Airway intact. Moist mucous membranes. Neck: Normal inspection. Neck supple. CVS: Normal heart rate and rhythm. Heart sounds normal. Pulses normal. Respiratory: No respiratory distress. Breath sounds normal. Abdomen: Soft and nontender. No organomegaly. Back: Normal inspection. Skin: Skin warm and dry. Normal skin color. No rash. Normal skin turgor. Extremities: Extremities exhibit normal ROM. No lower extremity edema. Neuro: Alert. Mood/affect normal. Mild dysphasia (secondary to facial droop). She has had weakness of the left arm (mild), left hand (mild) and left leg (mild). No sensory deficit. LABS, X-RAYS, AND EKG Laboratory Tests: UA-Culture if indicated: (LILLY: 12/09/2016 23:00) ( MsgRcvd 12/09/2016 23:17) Final results Test Result Flag Units (Reference) URINE COLOR YELLOW URINE APPEARANCE CLEAR URINE GLUCOSE NEGATIVE (NEGATIVE) URINE BILIRUBIN NEGATIVE (NEGATIVE) URINE KETONE TRACE (NEGATIVE) URINE SPECIFIC GRAVITY 1.015 (1.010-1.030) URINE PH 5.5 (5.0-8.0) URINE PROTEIN NEGATIVE (NEGATIVE) URINE UROBILINOGEN 0.2 EU/dL (0.2-1.0) URINE NITRITE NEGATIVE (NEGATIVE) URINE BLOOD NEGATIVE (NEGATIVE) URINE LEUK ESTERASE POSITIVE (NEGATIVE) URINE RBC 0-1 rbc/hpf (0-1) URINE WBC 1-3 wbc/hpf (0-1) URINE EPITHELIAL CELLS 0-1 EPI/hpf (0-5) URINE BACTERIA NONE SEEN (NONE SEEN) URINE COMMENT CULTURE INDICATED URINE CULTURES ARE SET-UP BASED ON THE FOLLOWING CRITERIA:POSITIVE NITRITEPOSITIVE LEUKOCYTE ESTERASEGREATER THAN 10 WHITE BLOOD CELLSMODERATE (2+) OR GREATER BACTERIA CBC w Diff: (LILLY: 12/09/2016 22:50) ( MsgRcvd 12/09/2016 23:03) Final results Test Result Flag Units (Reference) WHITE BLOOD COUNT 5.5 K/uL (4.5-11.5) RED BLOOD COUNT 4.02 M/uL (4.00-5.20) HEMOGLOBIN 12.5 gm/dL (12.0-16.0) HEMATOCRIT 37.3 % (36.0-46.0) MEAN CELL VOLUME 93 fL (80-100) MEAN CORPUSCULAR HGB 31 pg (26-34) MEAN CORPUSCULAR HGB CONC 34 g/dL (31-37) RED CELL DISTRIBUTION WIDTH 14.4 % (11.6-14.8) PLATELET COUNT 201 K/uL (150-400) NEUTROPHIL % 56.7 % (50-75) LYMPH % 36.0 % (25-40) MONO % 6.1 % (3-14) EOSINOPHIL % 0.4 % (0-4) BASOPHIL % 0.8 % (0-2) Urine Drug Screen: (LILLY: 12/09/2016 23:00) ( MsgRcvd 12/09/2016 23:31) Final results Test Result Flag Units (Reference) AMPHETAMINE/METHAMPHETAMINE NEGATIVE (NEGATIVE) BARBITURATE NEGATIVE (NEGATIVE) BENZODIAZEPINE NEGATIVE (NEGATIVE) CANNABINOID NEGATIVE (NEGATIVE) COCAINE NEGATIVE (NEGATIVE) ECSTASY NEGATIVE (NEGATIVE) METHADONE NEGATIVE (NEGATIVE) OPIATE NEGATIVE (NEGATIVE) The urine drug screen is a qualitative screening test fordrug overdose and abuse. All screen results should beconsidered as presumptive.Drugs screened for are as follows:BenzodiazepinesCocaineAmphetamines/MetamphetaminesTHC (Tetrahydrocannabinol)OpiatesBarbituratesEcstasyMethadonePositive results are unconfirmed. For confirmation, notifythe lab for the specimen to be sent to the reference lab.All confirmations must be performed by a differentmethodology.The ingestion of natural herbal and plant productscontaining Ephedra/Ephedra metabolites can produce in urineone or more substances capable of cross reacting withamphetamine/methamphetamine immunoassays. These testsprovide a preliminary result only. A more specificalternative chemical method must be used to obtain aconfirmed analytical result. CMP: (LILLY: 12/09/2016 22:50) ( MsgRcvd 12/09/2016 23:17) Final results Test Result Flag Units (Reference) GLUCOSE 105 mg/dL (70-110) BUN 16 mg/dL (7-18) CREATININE 1.1 mg/dL (0.6-1.3) Estimated GFR 52.04 mL/min Estimated GFR- >60 mL/min Note: Persistent reduction over 3 months in eGFR<60 mL/min/1.73 m2 defines CKD. Patients with eGFR values>=60 mL/min/1.73 m2 may also have CKD if evidence ofpersistent proteinuria. Additional information may be foundat www.kidney.org. SODIUM 144 mmol/L (136-145) POTASSIUM 4.0 mmol/L (3.5-5.1) CHLORIDE 106 mmol/L (98-107) CARBON DIOXIDE 24 mmol/L (21-32) CALCIUM 9.5 mg/dL (8.5-10.1) TOTAL PROTEIN 6.9 g/dL (6.4-8.2) ALBUMIN 3.9 g/dL (3.3-5.0) BILIRUBIN, TOTAL 0.6 mg/dL (0.0-1.0) ALKALINE PHOSPHATASE 61 U/L (46-116) AST (SGOT) 17 U/L (15-37) ALT (SGPT) 20 U/L (12-78) . Pulse Oximetry: 12/09/2016 22:44 O2 saturation: 100%. (FIO2 - room air). Interpretation: normal. PROGRESS AND PROCEDURES Course of Care: Pt was worked up and work-up was unremarkable compared to pt's recent studies, except for a mild UTI. Pt was started on Bactrim for this. Pt states that her family is trying to get her and her to go to assisted living, and I have expressed to the pt that I think this is a good idea. PT has chronic, multi-infarct dementia, but no emergent condition has been identified tonight. Patient counseled in person regarding the patient's stable condition, test results, diagnosis and need for follow-up. Concerns were addressed. Old medical records reviewed. Disposition: Discharged. Condition: stable. CLINICAL IMPRESSION Chronic multi-infarct vascular dementia. Acute urinary tract infection with cystitis. INSTRUCTIONS Warnings: GENERAL WARNINGS: Return or contact your physician immediately if your condition worsens or changes unexpectedly, if not improving as expected, or if other problems arise. Your Current Medications: CONTINUE TAKING THE FOLLOWING MEDICATIONS: Amlodipine 10 mg Q AM*. ASA/Dipyrida 25/200mg BID*. Atorvastatin 20 mg QHS*. Lamotrigine 150mg BID*. Levetiracetam 500 mg BID*. Lisinopril 40 mg Q AM*. Metoprolol ER 50 mg Q AM*. Senna 8.6 mg BID*. Prescription Medications: Trimethoprim-Sulfamethoxazole DS: take 1 tablet orally every 12 hours for 7 days. No refill. Follow-up: Follow up with your doctor. Reason for referral: Please talk to your doctor about assisted living options for you and your . Understanding of the discharge instructions verbalized by patient. (Electronically signed by Dahiana Thomas MD 12/13/2016 19:27)
--- NOTE | 2016-12-10 00:56 | ED ORDER SUMMARY ---
..... Patient: DAHIANA ROJAS OrderSheet [facility] VisitID: [id number] [place] [address] 71y, F Registration Date/Time: 12/09/2016 ORDER SHEET Weight: 68.0 kg (stated) Allergies: No Known Drug Allergy GENERAL ORDERS: UA-Culture if indicated Urgent (22:53 12/09/2016 Duong QUIROS) (Ack 22:55 AMcQuoid ER Tech1) (Ack 22:55 HSoule) (23:33 HSoule) CBC w Diff Urgent (22:53 12/09/2016 Duong QUIROS) (Ack 22:55 AMcQuoid ER Tech1) (Ack 22:55 HSoule) (23:33 HSoule) CMP Urgent (22:53 12/09/2016 Duong QUIROS) (Ack 22:55 AMcQuoid ER Tech1) (Ack 22:55 HSoule) (23:33 HSoule) Urine Drug Screen Urgent (22:57 12/09/2016 Duong QUIROS) (Ack 22:59 AMcQuoid ER Tech1) (23:33 HSoule) MEDICATION ORDERS: Bactrim DS PO (Tablet 800-160 mg) 1 tab (NOW) (00:15 12/10/2016 Duong QUIROS) (Ack 0:18 HSoule) (0:26 HSoule) IV FLUIDS: IV Saline Lock (22:53 12/09/2016 Duong QUIROS) (22:56 HSoule) ORDER SHEET NOTES: [Electronically signed by Dahiana Thomas MD (19:27 12/13/2016)] [Electronically signed by Sayda Gould (19:06 12/18/2016)] [Electronically locked/signed by Sayda Golud (19:12/18/2016)]
--- NOTE | 2016-12-18 19:06 | ED MED RECONCILIATION SUMMARY ---
Patient: BOBJMRA Funes Medication Reconciliation Report [facility] VisitID: [id number] [address] [place] [address] 71y, F Registration Date/Time: 12/09/2016 Weight: 68.0 kg Height/Length: 65 in. BMI: 25.0 ALLERGIES: No Known Drug Allergy The patient's Home Medications are listed below: CONTINUE TAKING THE FOLLOWING MEDICATIONS: Amlodipine 10 mg Q AM ASA/Dipyrida 25/200mg BID Atorvastatin 20 mg QHS Lamotrigine 150mg BID Levetiracetam 500 mg BID Lisinopril 40 mg Q AM Metoprolol ER 50 mg Q AM Senna 8.6 mg BID The source(s) of the original Home Medication information: patient The following Medications were given to the patient in the Emergency Department: Bactrim DS [PO] PO 1 tab, administered: 12/10/2016 12:21:00 AM The following Medications were prescribed to the patient: Trimethoprim-Sulfamethoxazole DS: take 1 tablet orally every 12 hours for 7 days. No refill. -- Dahiana Thomas MD
--- NOTE | 2016-12-18 19:06 | ED MED RECONCILIATION SUMMARY ---
Patient: BOBJMRA Funes Medication Reconciliation Report [facility] VisitID: [id number] [address] [place] [address] 71y, F Registration Date/Time: 12/09/2016 Weight: 68.0 kg Height/Length: 65 in. BMI: 25.0 ALLERGIES: No Known Drug Allergy The patient's Home Medications are listed below: CONTINUE TAKING THE FOLLOWING MEDICATIONS: Amlodipine 10 mg Q AM ASA/Dipyrida 25/200mg BID Atorvastatin 20 mg QHS Lamotrigine 150mg BID Levetiracetam 500 mg BID Lisinopril 40 mg Q AM Metoprolol ER 50 mg Q AM Senna 8.6 mg BID The source(s) of the original Home Medication information: patient The following Medications were given to the patient in the Emergency Department: Bactrim DS [PO] PO 1 tab, administered: 12/10/2016 12:21:00 AM The following Medications were prescribed to the patient: Trimethoprim-Sulfamethoxazole DS: take 1 tablet orally every 12 hours for 7 days. No refill. -- Dahiana Thomas MD
--- NOTE | 2016-12-18 19:06 | ED DISCHARGE INSTRUCTIONS ---
Patient: DAHIANA ROJAS General Instructions [facility] VisitID: [id number] [place] [address] 71y, F Registration Date/Time: 12/09/2016 Chronic multi-infarct vascular dementia. Acute urinary tract infection with cystitis. INSTRUCTIONS Warnings: GENERAL WARNINGS: Return or contact your physician immediately if your condition worsens or changes unexpectedly, if not improving as expected, or if other problems arise. Your Current Medications: CONTINUE TAKING THE FOLLOWING MEDICATIONS: Amlodipine 10 mg Q AM*. ASA/Dipyrida 25/200mg BID*. Atorvastatin 20 mg QHS*. Lamotrigine 150mg BID*. Levetiracetam 500 mg BID*. Lisinopril 40 mg Q AM*. Metoprolol ER 50 mg Q AM*. Senna 8.6 mg BID*. Prescription Medications: Trimethoprim-Sulfamethoxazole DS: take 1 tablet orally every 12 hours for 7 days. No refill. Follow-up: Follow up with your doctor. Reason for referral: Please talk to your doctor about assisted living options for you and your . Understanding of the discharge instructions verbalized by patient. ADDITIONAL INFORMATION Dementia & Caregiver Support (Advice For The Caregiver) Dementia is a chronic condition that affects the brain. It causes a gradual loss of memory. There may be trouble recognizing familiar people and places, or knowing what day it is. Memory, judgment and decision-making may also be affected. In severe cases there may be limited or no response to verbal commands. The most common form of dementia is Alzheimers disease. The cause of Alzheimer's disease is not fully understood. So far there is no cure. However, there are medicines to slow down the progress of the disease and to treat some of the symptoms. Some of the less common causes for dementia are curable. So, it is important to have a complete medical evaluation to look for conditions that can be treated. Home Care: A responsible person must be with the person who has advanced dementia at all times. He/she should not be left alone or unsupervised. In the case of advanced advanced dementia, keep medicines (prescription and [id number]) in a secure place, under the caregivers control. A person with advanced dementia should not be allowed to take their own medicines. This needs to be supervised by the caregiver. Ways to help a person with dementia: Activities:Keep to a daily routine. Changes in environment and schedules can be a source of stress for someone with dementia. Make a time schedule for common tasks of living such as bathing, dressing, taking medicines, meal times, going for walks, shopping, naps, and bed time. Communication:When speaking to a person with dementia, talk slowly and clearly. Use a gentle tone of voice. Choose short, simple words and sentences. Ask one question at a time. Do not interrupt, criticize or argue. Be calm and supportive. Use friendly facial expressions. Use pointing and touching to help communicate. If there has been loss of long-term memory, do not ask questions about past events. Instead, talk about what is happening now. Behavioral tips:Use lists, signs, family photos, clocks and calendars as memory aids. Label cabinets and drawers. Try to distract, not confront, the patient. When he/she becomes frustrated or upset, direct his/her attention to eating or some other activity of interest. Medical-Legal tips: Talk to your doctor and/or logistics project manager about getting a Power of Drone Pilot for health care and for financial decisions. It is best to do this while the person can still sign legal documents and make his/her own legal decisions. Otherwise a court order will be needed. Support For The Caregiver: As the caregiver, you will need a lot of support for yourself. Caring for a person with dementia is a full-time job. It can drain your emotions and lead to frustration and anger towards the one you love. It is common to have feelings of grief over losing the familiar relationship that you once knew. As a caregiver to someone with dementia, you are at higher risk for depression, anxiety and stress reactions. Here are some tips to help you cope with being a caregiver: Learn about dementia and Alzheimers disease so you know what to expect. Find out about the resources in your community, including adult day care programs. Ask our staff for a referral to a geriatric social work professor, if needed. Take care of yourself with a good diet, exercise and plenty of rest. Ask for help. Share some of the caretaking duties with family and friends. Make personal time for yourself. This is essential! Consider hiring an in-home sitter. Seek counseling and/or join a caregivers support group. Don't isolate yourself, or try to cope with this alone. In a support group, you can learn from others in a similar situation. Contact the Alzheimers Association ( ) or visit their website (www.alz.org) for more information. Follow-Up with the patients doctor or as advised by our staff. Get Prompt Medical Attention if any of the following occur: Frequent falling Refusal to eat or drink Violent behavior or behavior becomes too difficult to manage at home Increased drowsiness, or failure to respond normally Increasing headache, nausea or repeated vomiting Numbness or weakness of the face, one arm or one leg Slurred speech, trouble speaking, walking or seeing Fainting spell, dizziness or seizure Unexplained fever over 100.4 F (38.0 C) oral Bladder Infection,Female (Adult) A bladder infection ("cystitis" or "UTI") usually causes a constant urge to urinate and a burning when passing urine. Urine may be cloudy, smelly or dark. There may be pain in the lower abdomen. A bladder infection occurs when bacteria from the vaginal area enter the bladder opening (urethra). This can occur from sexual intercourse, wearing tight clothing, dehydration and other factors. Home Care: Drink lots of fluids (at least 6-8 glasses a day, unless you must restrict fluids for other medical reasons). This will force the medicine into your urinary system and flush the bacteria out of your body. Avoid sexual intercourse until your symptoms are gone. Avoid caffeine, alcohol and spicy foods. These can irritate the bladder. A bladder infection is treated with antibiotics. You may also be given Pyridium (generic = phenazopyridine) to reduce the burning sensation. This medicine will cause your urine to become a bright orange color. The orange urine may stain clothing. You may wear a pad or panty-liner to protect clothing. Preventing Future Infections: Always wipe from front to back after a bowel movement. Keep the genital area clean and dry. Drink plenty of fluids each day to avoid dehydration. Both sexual partners should wash before intercourse. Urinate right after intercourse to flush out the bladder. Wear cotton underwear and cotton-lined panty hose; avoid tight-fitting pants. If you are on control pills and are having frequent bladder infections, discuss with your doctor. Follow Up: Return to this facility or see your doctor if ALL symptoms are not gone after three days of treatment. Get Prompt Medical Attention if any of the following occur: Fever of 100.4F (38C) or higher, or as directed by your healthcare provider No improvement by the third day of treatment Increasing back or abdominal pain Repeated vomiting; unable to keep medicine down Weakness, dizziness or fainting Vaginal discharge Pain, redness or swelling in the labia (outer vaginal area) You have been given the following additional information: Dementia, Any Type Bladder Infection, Female (Adult) (Electronically signed by Dahiana Thomas MD 12/13/2016 19:27)
--- NOTE | 2016-12-18 19:06 | ED MAR SUMMARY ---
..... Medication Administration Record [facility] [address] [place] [address] Patient: SUDHAKAR ROJAS Visit ID: [id number] 71y, F Weight: 68.0 kg Height/Length: 65 in BMI: 25 ALLERGIES: No Known Drug Allergy Given 00:21 12/10/2016 Sayda Gould, Medication Administered: BACTRIM DS [PO] (SULFAMETHOXAZOLE-TMP DS), Dose: 1 tab Tablets PO. Medication Ordered: Bactrim DS PO (Tablet 800-160 mg) 1 tab (NOW).
--- NOTE | 2016-12-18 19:06 | ED MAR SUMMARY ---
..... Medication Administration Record [facility] [address] [place] [address] Patient: SUDHAKAR ROJAS Visit ID: [id number] 71y, F Weight: 68.0 kg Height/Length: 65 in BMI: 25 ALLERGIES: No Known Drug Allergy Given 00:21 12/10/2016 Sayda Gould, Medication Administered: BACTRIM DS [PO] (SULFAMETHOXAZOLE-TMP DS), Dose: 1 tab Tablets PO. Medication Ordered: Bactrim DS PO (Tablet 800-160 mg) 1 tab (NOW).
== END 2016-12-10 01:35 | disposition home or self-care (01) ==
LOC: ED SRH 22:42
DX: F01.50 Vascular dementia, unspecified severity, without behavioral disturbance, psychotic disturbance, mood disturbance, and anxiety (principal); N30.00 Acute cystitis without hematuria; I10 Essential (primary) hypertension; E78.00 Pure hypercholesterolemia, unspecified; Z79.899 Other long term (current) drug therapy
CPT/HCPCS: 81460; 90004; 90100; 90469; 92760; 92761; 92762; 92763; 92764; 92765; 92766; 92767; 95059

== ENCOUNTER 2016-12-11 08:17 | Emergency (ER) | payer OTHER ==
--- NOTE | 2016-12-11 09:26 | ED NURSING NOTES ---
Clinical Report - Nurses [facility] [address] [place] [address] 12/11/2016 8:19 [id number] Triage time 08:Dec 11 2016. Acuity: LEVEL 3. Chief Complaint: FALL while walking, onto a carpeted surface and landed on their arms with hands extended and knees (States legs gave out). SAMY COMA SCORE: [place] Coma Scale: 15- eyes open spontaneously (4); best verbal response- oriented x 4 (5); best motor response- obeys commands (6). --08:28 Forest Aguirre R.N. 08:23 12/11/16. BP: 117/70. HR: 70. RR: 18. O2 saturation: 100%. Temp: 98.3 F. Pain level now 0/10. --08:28 Forest Aguirre R.N. Weight: 65.7 kg stated. Height/Length: 65 inches Per Patient. BMI: 24.1. --08:24 Forest Aguirre R.N. Medications Amlodipine 10 mg Q AM. --08:24 Forest Aguirre R.N. ASA/Dipyrida 25/200mg BID. Atorvastatin 20 mg QHS. Lamotrigine 150mg BID. Levetiracetam 500 mg BID. Lisinopril 40 mg Q AM. Metoprolol ER 50 mg Q AM. Senna 8.6 mg BID. --08:24 Forest Aguirre R.N. Allergies No Known Drug Allergy. --08:24 Forest Aguirre R.N. History Arrived by EMS. Historian: patient. This occurred just prior to arrival. She has had trouble walking. ( Patient states feels weak at times.). No loss of consciousness. No alteration in mental status, dizziness, neck pain, extremity pain or back pain. Treatment TOE STAPLER: None. Trauma activation: Pre-hospital notification of patient arrival was received. PAST MEDICAL HX: Stroke. No history of diabetes mellitus, heart disease or hypertension. No history of dementia. Tetanus status: up-to-date. Immunizations: up-to-date. SOCIAL HX: Never smoker. No alcohol use or drug use. SELF HARM ASSESSMENT: A self harm assessment was performed. The patient answered "no" to the question "Have you recently felt down, depressed, or hopeless?" and "Do you have thoughts of harming or killing yourself?". FALL RISK ASSESSMENT: Fall risk assessment completed. No fall risk identified. NUTRITIONAL RISK ASSESSMENT: The nutritional risk assessment revealed no deficiencies. FUNCTIONAL ASSESSMENT: Functional assessment: no impairments noted. LEARNING NEEDS ASSESSMENT: The learning needs assessment revealed no barriers. ABUSE ASSESSMENT: Abuse assessment: (yes). --08: Forest Aguirre R.N. PROBLEMS: UTI - Urinary Tract Infection. Dementia. Bunch's Palsy. Weakness. Hypercholesterolemia. Constipation. Hypertension. Seizure. CVA - Cerebrovascular Accident. --08: Forest Aguirre R.N. ADDITIONAL SURGERIES: Appendectomy. Craniotomy. Hysterectomy. --08: Forest Aguirre R.N. Interventions ID and allergy band on patient. --08: Forest Aguirre R.N. PHYSICAL ASSESSMENT To room via stretcher. GENERAL / NEURO / PSYCH: Alert. Oriented X 4. Appears in no acute distress. HEENT: Pupils equal, round and reactive to light. Head non-tender. RESPIRATORY: Respirations not labored. Chest nontender. Breath sounds within normal limits. CVS: Normal heart rate and rhythm. Pulses within normal limits. Capillary refill less than 2 seconds. GI / : Abdomen soft and nontender. EXTREMITIES: Neuro-vascular status intact to the extremity. SKIN: Skin intact. Skin is warm and dry. Ecchymosis. ( Old bruising from falls, no current bruising). --08:29 Forest Aguirre R.N. NURSING PROGRESS NOTES The plan of care for this patient includes an assessment with efforts to address patient positioning, appropriate ambient lighting and comfortable environmental temperature; impairment of the musculoskeletal system. Patient gowned. Reassurance given. Call light placed in reach. Side rails up x 2. Bed placed in lowest position. Brakes of bed on. --08: Forest Aguirre R.N. 09:50 12/11/2016 Bactrim DS (Sulfamethoxazole-TMP DS) PO Capsules 1 tab given. Allergies verified and confirmed 5 rights. --09:50 Forest Aguirre R.N. DISPOSITION / DISCHARGE Condition at departure: improved. No learning barriers present. Discharge instructions provided and reviewed with the patient. Reviewed warnings. Reviewed medication(s). Treatments reviewed. Reviewed referrals. Patient verbalized understanding. The patient was discharged home. She left the Emergency Department via ambulance. --09:53 Forest Aguirre R.N. 09:50 12/11/16. BP: 113/59. HR: 70. RR: 18. O2 saturation: 97%. Temp: 98.2 F. Pain level now 0/10. --09:53 Forest Aguirre R.N. ( Food and drink given .). --09:54 Forest Aguirre R.N. Departure time: 10:Dec 11 2016. ( Report given to [facility]). --10:18 Forest Aguirre R.N. Locked/Released at 12/11/2016 18:47 by Forest Aguirre R.N.
--- NOTE | 2016-12-11 09:26 | ED ORDER SUMMARY ---
..... Patient: SUDHAKAR ROJAS OrderSheet [facility] VisitID: [id number] [address] [place] [address] 71y, F Registration Date/Time: 12/11/2016 ORDER SHEET Weight: 65.7 kg (stated) Allergies: No Known Drug Allergy GENERAL ORDERS: UA-Culture if indicated Urgent (08:46 12/11/2016 Alirio Adam) (Ack 8:49 TBergley) (Cancelled: Other9:17 PHmsdiego MELENDEZ) Urine Drug Screen Urgent (08:46 12/11/2016 Alirio Adam) (Ack 8:49 TBergley) (Cancelled: Other9:17 PHmaria teresa MELENDEZ) Cardiac Panel Stat (08:46 12/11/2016 Alirio Adam) (Ack 8:49 TBergley) (9:16 [facility]) (Cancelled: Other9:17 [facility]) MEDICATION ORDERS: Bactrim DS PO (Tablet 800-160 mg) 1 tab (NOW) (09:47 12/11/2016 maria teresa MELENDEZ) (9:50 Richie R.N.) IV FLUIDS: IV Saline Lock (08:46 12/11/2016 Alirio Adam) (Cancelled: Other9:17 [facility] ) ORDER SHEET NOTES: [Electronically signed by Aris Ontiveros DO (17:35 12/11/2016)] [Electronically signed by Forest Aguirre R.N. (18:47 12/11/2016)] [Electronically locked/signed by Forest Aguirre R.N. (18:47 12/11/2016)]
--- NOTE | 2016-12-11 09:26 | ED ORDER SUMMARY ---
..... Patient: SUDHAKAR ROJAS OrderSheet [facility] VisitID: [id number] [address] [place] [address] 71y, F Registration Date/Time: 12/11/2016 ORDER SHEET Weight: 65.7 kg (stated) Allergies: No Known Drug Allergy GENERAL ORDERS: UA-Culture if indicated Urgent (08:46 12/11/2016 Alirio Adam) (Ack 8:49 TBergley) (Cancelled: Other9:17 PHpadiego MELENDEZ) Urine Drug Screen Urgent (08:46 12/11/2016 Alirio Adam) (Ack 8:49 TBergley) (Cancelled: Other9:17 PHmaria teresa MELENDEZ) Cardiac Panel Stat (08:46 12/11/2016 Alirio Adam) (Ack 8:49 TBergley) (9:16 [facility] (Cancelled: Other9:17 [facility]) MEDICATION ORDERS: Bactrim DS PO (Tablet 800-160 mg) 1 tab (NOW) (09:47 12/11/2016 maria teresa MELENDEZ) (9:50 Richie R.N.) IV FLUIDS: IV Saline Lock (08:46 12/11/2016 Alirio Adam) (Cancelled: [facility]9:17 [facility] ) ORDER SHEET NOTES: [Electronically signed by Aris Ontiveros DO (17:35 12/11/2016)] [Electronically signed by Forest Aguirre R.N. (18:47 12/11/2016)] [Electronically locked/signed by Forest Aguirre R.N. (18:47 12/11/2016)]
--- NOTE | 2016-12-11 09:26 | ED CLINICAL REPORT ---
Clinical Report - Physicians/Mid Levels [facility] [address] [place] [address] 12/11/2016 8:19 Patient: SUDHAKAR ROJAS Time Seen: 08:41; initial patient contact. Arrived- By private vehicle. Historian- patient. History limited by dementia. Physical Exam limited by dementia. HISTORY OF PRESENT ILLNESS Location of injuries- (no known acute injuries - has recent contusions to both upper and lower extremities - especially the left shoulder). Chief Complaint: FALL. The injury occurred just prior to arrival. Occurred at home. Fell while walking and landed on a carpeted surface; tripped. The patient denies pain. No blow to the head, neck pain or loss of consciousness. Not dazed. (Pt states "legs gave out" and she tripped. She has had multiple, similar episodes in the past week with extensive recent work up including CT head x 2 in the past 8 days and blood and urine work up with possible recent UTI - treated with bactrim, but culture neg). REVIEW OF SYSTEMS No numbness, dizziness, hearing loss, chest pain or difficulty breathing. No weakness, headache, nausea, abdominal pain or laceration. No vomiting. She has had fever but no pain on weight bearing. All systems otherwise negative, except as recorded above. PAST HISTORY PROBLEMS: UTI - Urinary Tract Infection. Chronic multi-infarct vascular dementia. Bunch's Palsy. Weakness. Hypercholesterolemia. Constipation. Hypertension. Seizure. CVA - Cerebrovascular Accident. SURGERIES: Appendectomy. Craniotomy. Hysterectomy. SOCIAL HISTORY Never smoker. No alcohol use or drug use. Is a local resident. ADDITIONAL NOTES The nursing notes have been reviewed. PHYSICAL EXAM Vital Signs: 12/11/2016 08:23 BP: 117/70. HR: 70. RR: 18. O2 saturation: 100%. Temp: 98.3 F. Appearance: Alert. Oriented X3. No acute distress. Head: Head non-tender. No swelling of head. No Strickland's sign or raccoon eyes. Eyes: EOM intact. ENT: No dental injury. Pharynx normal. Neck: Painless ROM. Non-tender. CVS: Heart sounds normal. Pulses normal. Respiratory: Breath sounds normal. Chest nontender. No chest wall injury, decreased breath sounds, rales, wheezes or rhonchi. No crepitus. Abdomen: No visible injury. Soft and nontender. No mass. Back: No tenderness. ROM normal. Skin: Skin intact. No cyanosis. Skin warm and dry. No pallor. Skin not cool on palpation. (scattered areas of ecchymosis on both upper and lower extremities). No diaphoresis. Extremities: Left shoulder: mild tenderness and medium sized ecchymosis. Neurovascular intact distally. No erythema, swelling, abrasion, puncture wound or deformity. No limitation in ROM. Right arm: small ecchymosis located in the upper and lower arm. Neurovascular intact distally. No tenderness or swelling. Left arm: small ecchymosis located in the upper arm. Neurovascular intact distally. No erythema, tenderness or laceration. Pelvis stable. Right hip. No tenderness. No limitation in ROM. The right leg is not shortened, externally rotated, internally rotated, flexed or adducted. The right leg is not abducted. Left hip. Neurovascular intact distally. No tenderness. No limitation in ROM. The left leg is not shortened, externally rotated, internally rotated, flexed or adducted. The left leg is not abducted. Right knee: located in the infrapatellar area. Neurovascular intact distally. No ligamentous laxity present. No limitation in ROM. Left knee: small ecchymosis. No ligamentous laxity present. No tenderness or laceration. No limited flexion. Neurovascular not intact distally. Right leg: located in the anterior aspect of upper and mid leg. Neurovascular intact distally. No tenderness or swelling. Left leg: small ecchymosis located in the anterior aspect of upper and mid leg. No tenderness, swelling, laceration, abrasion or puncture wound. No foreign body or deformity. Neuro: [place] Coma Scale: 14- eyes open spontaneously (4); best verbal response- disoriented (4); best motor response- obeys commands (6). (knows name, general location - knows her home address; confused about date). No motor deficit. No sensory deficit. Reflexes normal. LABS, X-RAYS, AND EKG Pulse Oximetry: 12/11/2016 08:23 O2 saturation: 100%. (FIO2 - room air). Interpretation: normal. Note - Tests: (LABS DONE 2 DAYS AGO: UA-Culture if indicated: (ILLLY: 12/09/2016 23:00) ( MsgRcvd 12/09/2016 23:17) Final results Test Result Flag (Reference) URINE COLOR YELLOW URINE APPEARANCE CLEAR URINE GLUCOSE NEGATIVE (NEGATIVE) URINE BILIRUBIN NEGATIVE (NEGATIVE) URINE KETONE TRACE (NEGATIVE) URINE SPECIFIC GRAVITY 1.015 (1.010-1.030) URINE PH 5.5 (5.0-8.0) URINE PROTEIN NEGATIVE (NEGATIVE) URINE UROBILINOGEN 0.2 EU/dL (0.2-1.0) URINE NITRITE NEGATIVE (NEGATIVE) URINE BLOOD NEGATIVE (NEGATIVE) URINE LEUK ESTERASE POSITIVE (NEGATIVE) URINE RBC 0-1 rbc/hpf (0-1) URINE WBC 1-3 wbc/hpf (0-1) URINE EPITHELIAL CELLS 0-1 EPI/hpf (0-5) URINE BACTERIA NONE SEEN (NONE SEEN) URINE COMMENT CULTURE INDICATED URINE CULTURES ARE SET-UP BASED ON THE FOLLOWING CRITERIA: POSITIVE NITRITE POSITIVE LEUKOCYTE ESTERASE GREATER THAN 10 WHITE BLOOD CELLS MODERATE (2+) OR GREATER BACTERIA Urine Drug Screen: (LILLY: 12/09/2016 23:00) ( MsgRcvd 12/09/2016 23:31) Final results Test Result Flag (Reference) AMPHETAMINE/METHAMPHETAMINE NEGATIVE (NEGATIVE) BARBITURATE NEGATIVE (NEGATIVE) BENZODIAZEPINE NEGATIVE (NEGATIVE) CANNABINOID NEGATIVE (NEGATIVE) COCAINE NEGATIVE (NEGATIVE) ECSTASY NEGATIVE (NEGATIVE) METHADONE NEGATIVE (NEGATIVE) OPIATE NEGATIVE (NEGATIVE) The urine drug screen is a qualitative screening test for drug overdose and abuse. All screen results should be considered as presumptive. Drugs screened for are as follows: Benzodiazepines Cocaine Amphetamines/Metamphetamines THC (Tetrahydrocannabinol) Opiates Barbiturates Ecstasy Methadone Positive results are unconfirmed. For confirmation, notify the lab for the specimen to be sent to the reference lab. All confirmations must be performed by a different methodology. The ingestion of natural herbal and plant products containing Ephedra/Ephedra metabolites can produce in urine one or more substances capable of cross reacting with amphetamine/methamphetamine immunoassays. These tests provide a preliminary result only. A more specific alternative chemical method must be used to obtain a confirmed analytical result. Culture, Urine: (LILLY: 12/09/2016 23:00) ( [facility] 12/11/2016 09:27) Final results Test Result Flag (Reference) CULTURE, URINE DATE: 12/11/16 NO GROWTH AT:: NO GROWTH AT 2 DAYS PRELIM REPORT: FINAL REPORT CBC w Diff: (LILLY: 12/09/2016 22:50) ( [facility] 12/09/2016 23:03) Final results Test Result Flag (Reference) WHITE BLOOD COUNT 5.5 K/uL (4.5-11.5) RED BLOOD COUNT 4.02 M/uL (4.00-5.20) HEMOGLOBIN 12.5 gm/dL (12.0-16.0) HEMATOCRIT 37.3 % (36.0-46.0) MEAN CELL VOLUME 93 fL (80-100) MEAN CORPUSCULAR HGB 31 pg (26-34) MEAN CORPUSCULAR HGB CONC 34 g/dL (31-37) RED CELL DISTRIBUTION WIDTH 14.4 % (11.6-14.8) PLATELET COUNT 201 K/uL (150-400) NEUTROPHIL % 56.7 % (50-75) LYMPH % 36.0 % (25-40) MONO % 6.1 % (3-14) EOSINOPHIL % 0.4 % (0-4) BASOPHIL % 0.8 % (0-2) CMP: (LILLY: 12/09/2016 22:50) ( [facility] 12/09/2016 23:17) Final results Test Result Flag (Reference) GLUCOSE 105 mg/dL (70-110) BUN 16 mg/dL (7-18) CREATININE 1.1 mg/dL (0.6-1.3) Estimated GFR 52.04 mL/min Estimated GFR- >60 mL/min Note: Persistent reduction over 3 months in eGFR <60 mL/min/1.73 m2 defines CKD. Patients with eGFR values >=60 mL/min/1.73 m2 may also have CKD if evidence of persistent proteinuria. Additional information may be found at www.kidney.org. SODIUM 144 mmol/L (136-145) POTASSIUM 4.0 mmol/L (3.5-5.1) CHLORIDE 106 mmol/L (98-107) CARBON DIOXIDE 24 mmol/L (21-32) CALCIUM 9.5 mg/dL (8.5-10.1) TOTAL PROTEIN 6.9 g/dL (6.4-8.2) ALBUMIN 3.9 g/dL (3.3-5.0) BILIRUBIN, TOTAL 0.6 mg/dL (0.0-1.0) ALKALINE PHOSPHATASE 61 U/L (46-116) AST (SGOT) 17 U/L (15-37) ALT (SGPT) 20 U/L (12-78)). PROGRESS AND PROCEDURES Course of Care: 08:55. Care transferred from Dr. Hernandes to myself secondary to change of shift There does not appear to be any new injury or other new issue today. No indication for repeat blood or urine evaluation or CT head. 12/11/2016 09:50 BP: 113/59. HR: 70. RR: 18. O2 saturation: 97%. Temp: 98.2 F. Patient/family counseled. Old ED records reviewed. Patient has had multiple ED visits (5 visits to [facility] ED in past 8 days). Disposition: Discharged. Condition: stable and improved. CLINICAL IMPRESSION Chronic multi-infarct vascular dementia. No behavioral disturbance. Contusion to the right upper arm, right forearm, right thigh and right lower leg and left shoulder, left upper arm, left knee and left lower leg. Fall on same level by tripping. INSTRUCTIONS Apply ice. You may walk and bear weight as tolerated. (Please continue to pursue an assisted living situation). Warnings: GENERAL WARNINGS: Return or contact your physician immediately if your condition worsens or changes unexpectedly, if not improving as expected, or if other problems arise. Your Current Medications: CONTINUE TAKING THE FOLLOWING MEDICATIONS: Amlodipine 10 mg Q AM*. ASA/Dipyrida 25/200mg BID*. Atorvastatin 20 mg QHS*. Lamotrigine 150mg BID*. Levetiracetam 500 mg BID*. Lisinopril 40 mg Q AM*. Metoprolol ER 50 mg Q AM*. Senna 8.6 mg BID*. Follow-up: Follow up with your doctor in two days. (Electronically signed by Aris Ontiveros DO 12/11/2016 17:35)
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
--- NOTE | 2016-12-11 18:48 | ED MED RECONCILIATION SUMMARY ---
Patient: SUDHAKAR ROJAS Medication [facility]: [id number] [address] [place] [address] 71y, F Registration Date/Time: 12/11/2016 Weight: 65.7 kg Height/Length: 65 in. BMI: 24.1 ALLERGIES: No Known Drug Allergy The patient's Home Medications are listed below: CONTINUE TAKING THE FOLLOWING MEDICATIONS: Amlodipine 10 mg Q AM ASA/Dipyrida 25/200mg BID Atorvastatin 20 mg QHS Lamotrigine 150mg BID Levetiracetam 500 mg BID Lisinopril 40 mg Q AM Metoprolol ER 50 mg Q AM Senna 8.6 mg BID The source(s) of the original Home Medication information: Not obtained. The following Medications were given to the patient in the Emergency Department: Bactrim DS [PO] PO 1 tab, administered: 12/11/2016 9:50:00 AM The following Medications were prescribed to the patient: None.
--- NOTE | 2016-12-11 18:48 | ED MAR SUMMARY ---
..... Medication Administration Record [facility] [address] [place] [address] Patient: SUDHAKAR ROJAS Visit ID: [id number] 71y, F Weight: 65.7 kg Height/Length: 65 in BMI: 24.1 ALLERGIES: No Known Drug Allergy Given 09:50 12/11/2016 Forest Aguirre R.N. Medication Administered: BACTRIM DS [PO] (SULFAMETHOXAZOLE-TMP DS), Dose: 1 tab Capsules PO. Medication Ordered: Bactrim DS PO (Tablet 800-160 mg) 1 tab (NOW).
--- NOTE | 2016-12-11 18:48 | ED DISCHARGE INSTRUCTIONS ---
Patient: SUDHAKAR ROJAS General Instructions [facility] VisitID: [id number] [address] [place] [address] 71y, F Registration Date/Time: 12/11/2016 Chronic multi-infarct vascular dementia. No behavioral disturbance. Contusion to the right upper arm, right forearm, right thigh and right lower leg and left shoulder, left upper arm, left knee and left lower leg. Fall on same level by tripping. INSTRUCTIONS Apply ice. You may walk and bear weight as tolerated. (Please continue to pursue an assisted living situation). Warnings: GENERAL WARNINGS: Return or contact your physician immediately if your condition worsens or changes unexpectedly, if not improving as expected, or if other problems arise. Your Current Medications: CONTINUE TAKING THE FOLLOWING MEDICATIONS: Amlodipine 10 mg Q AM*. ASA/Dipyrida 25/200mg BID*. Atorvastatin 20 mg QHS*. Lamotrigine 150mg BID*. Levetiracetam 500 mg BID*. Lisinopril 40 mg Q AM*. Metoprolol ER 50 mg Q AM*. Senna 8.6 mg BID*. Follow-up: Follow up with your doctor in two days. ADDITIONAL INFORMATION Mechanical Fall You have had a fall today. It appears that the cause is mechanical. That means that you slipped, tripped or lost your balance. If your fall had been due to fainting or a seizure, further tests would be required. Home Care: Rest today and resume your normal activities when you are feeling back to normal. If you were injured during the fall, follow the advice from your doctor regarding care of your injury. You may use acetaminophen (Tylenol) or ibuprofen (Motrin, Advil) to control pain, unless another pain medicine was prescribed. [NOTE: If you have chronic liver or kidney disease or ever had a stomach ulcer or GI bleeding, talk with your doctor before using these medicines.] Fall Prevention: Was there anything that caused your fall that can be fixed, removed, or replaced? Make your home safe by keeping walkways clear of objects you may trip over. Use non-slip pads under rugs. Do not walk in poorly lit areas. Do not stand on chairs or wobbly ladders. Use caution when reaching overhead or looking upward. This position can cause a loss of balance. Be sure your shoes fit properly, have non-slip bottoms and are in good condition. Be cautious when going up and down curbs, and walking on uneven sidewalks. If your balance is poor, consider using a cane or walker. Stay as active as you can. Balance, flexibility, strength, and endurance all come from exercise. They all play a role in preventing falls. Follow Up with your doctor or as advised by our staff. Get Prompt Medical Attention if any of the following occur: Repeated mechanical falls, or unexplained falls Dizziness, fainting or seizure Severe headache Chest pain or shortness of breath Palpitations (very rapid or very slow or irregular heartbeat) Blood in vomit, stools (black or red color) Weakness of an arm or leg or one side of the face Difficulty with speech or vision Contusion,Soft Tissue You have a CONTUSION, which is a bruise with swelling and some bleeding under the skin. There are no broken bones. This injury takes a few days to a few weeks to heal. Home Care: 1) Keep the injured part elevated to reduce pain and swelling. This is especially important during the first 48 hours. 2) Make an ice pack (ice cubes in a plastic bag, wrapped in a towel) and apply for 20 minutes every 1-2 hours the first day. Continue this 3-4 times a day until the pain and swelling goes away. 3) You may use acetaminophen (Tylenol) or ibuprofen (Motrin, Advil) to control pain, unless another pain medicine was prescribed. [ NOTE : If you have chronic liver or kidney disease or ever had a stomach ulcer or GI bleeding, talk with your doctor before using these medicines.] Follow Up with your doctor or this facility if you are not improving within the next THREE days. [NOTE: If X-rays were taken, they will be reviewed by a radiologist. You will be notified of any new findings that may affect your care.] Get Prompt Medical Attention if any of the following occur: -- Pain or swelling increases -- Injured arm or leg becomes cold, blue, numb or tingly -- Redness, warmth or drainage from the skin Dementia & Caregiver Support (Advice For The Caregiver) Dementia is a chronic condition that affects the brain. It causes a gradual loss of memory. There may be trouble recognizing familiar people and places, or knowing what day it is. Memory, judgment and decision-making may also be affected. In severe cases there may be limited or no response to verbal commands. The most common form of dementia is Alzheimers disease. The cause of Alzheimer's disease is not fully understood. So far there is no cure. However, there are medicines to slow down the progress of the disease and to treat some of the symptoms. Some of the less common causes for dementia are curable. So, it is important to have a complete medical evaluation to look for conditions that can be treated. Home Care: A responsible person must be with the person who has advanced dementia at all times. He/she should not be left alone or unsupervised. In the case of advanced advanced dementia, keep medicines (prescription and voxj-ejw-lpyplun) in a secure place, under the caregivers control. A person with advanced dementia should not be allowed to take their own medicines. This needs to be supervised by the caregiver. Ways to help a person with dementia: Activities:Keep to a daily routine. Changes in environment and schedules can be a source of stress for someone with dementia. Make a time schedule for common tasks of living such as bathing, dressing, taking medicines, meal times, going for walks, shopping, naps, and bed time. Communication:When speaking to a person with dementia, talk slowly and clearly. Use a gentle tone of voice. Choose short, simple words and sentences. Ask one question at a time. Do not interrupt, criticize or argue. Be calm and supportive. Use friendly facial expressions. Use pointing and touching to help communicate. If there has been loss of long-term memory, do not ask questions about past events. Instead, talk about what is happening now. Behavioral tips:Use lists, signs, family photos, clocks and calendars as memory aids. Label cabinets and drawers. Try to distract, not confront, the patient. When he/she becomes frustrated or upset, direct his/her attention to eating or some other activity of interest. Medical-Legal tips: Talk to your doctor and/or tire adjuster about getting a Power of [employer] Librarian for health care and for financial decisions. It is best to do this while the person can still sign legal documents and make his/her own legal decisions. Otherwise a court order will be needed. Support For The Caregiver: As the caregiver, you will need a lot of support for yourself. Caring for a person with dementia is a full-time job. It can drain your emotions and lead to frustration and anger towards the one you love. It is common to have feelings of grief over losing the familiar relationship that you once knew. As a caregiver to someone with dementia, you are at higher risk for depression, anxiety and stress reactions. Here are some tips to help you cope with being a caregiver: Learn about dementia and Alzheimers disease so you know what to expect. Find out about the resources in your community, including adult day care programs. Ask our staff for a referral to a social media designer, if needed. Take care of yourself with a good diet, exercise and plenty of rest. Ask for help. Share some of the caretaking duties with family and friends. Make personal time for yourself. This is essential! Consider hiring an in-home sitter. Seek counseling and/or join a caregivers support group. Don't isolate yourself, or try to cope with this alone. In a support group, you can learn from others in a similar situation. Contact the Alzheimers Association ( ) or visit their website (www.alz.org) for more information. Follow-Up with the patients doctor or as advised by our staff. Get Prompt Medical Attention if any of the following occur: Frequent falling Refusal to eat or drink Violent behavior or behavior becomes too difficult to manage at home Increased drowsiness, or failure to respond normally Increasing headache, nausea or repeated vomiting Numbness or weakness of the face, one arm or one leg Slurred speech, trouble speaking, walking or seeing Fainting spell, dizziness or seizure Unexplained fever over 100.4 F (38.0 C) oral You have been given the following additional information: Fall, Mechanical Contusion, Soft Tissue Dementia, Any Type You may walk and bear weight as tolerated. (Electronically signed by Aris Ontiveros DO 12/11/2016 17:35)
--- NOTE | 2016-12-11 18:48 | ED MAR SUMMARY ---
..... Medication Administration Record [facility] [address] [place] [address] Patient: SUDHAKAR ROJAS Visit ID: [id number] 71y, F Weight: 65.7 kg Height/Length: 65 in BMI: 24.1 ALLERGIES: No Known Drug Allergy Given 09:50 12/11/2016 Forest Aguirre R.N. Medication Administered: BACTRIM DS [PO] (SULFAMETHOXAZOLE-TMP DS), Dose: 1 tab Capsules PO. Medication Ordered: Bactrim DS PO (Tablet 800-160 mg) 1 tab (NOW).
--- NOTE | 2016-12-11 18:48 | ED MED RECONCILIATION SUMMARY ---
Patient: SUDHAKAR ROJAS Medication Reconciliation Report [facility] VisitID: [id number] [address] [place] [address] 71y, F Registration Date/Time: 12/11/2016 Weight: 65.7 kg Height/Length: 65 in. BMI: 24.1 ALLERGIES: No Known Drug Allergy The patient's Home Medications are listed below: CONTINUE TAKING THE FOLLOWING MEDICATIONS: Amlodipine 10 mg Q AM ASA/Dipyrida 25/200mg BID Atorvastatin 20 mg QHS Lamotrigine 150mg BID Levetiracetam 500 mg BID Lisinopril 40 mg Q AM Metoprolol ER 50 mg Q AM Senna 8.6 mg BID The source(s) of the original Home Medication information: Not obtained. The following Medications were given to the patient in the Emergency Department: Bactrim DS [PO] PO 1 tab, administered: 12/11/2016 9:50:00 AM The following Medications were prescribed to the patient: None.
== END 2016-12-11 10:28 | disposition home or self-care (01) ==
LOC: ED SRH 08:17
DX: S40.021A Contusion of right upper arm, initial encounter (principal); S50.11XA Contusion of right forearm, initial encounter; S70.11XA Contusion of right thigh, initial encounter; S80.11XA Contusion of right lower leg, initial encounter; S40.022A Contusion of left upper arm, initial encounter; S40.012A Contusion of left shoulder, initial encounter; S80.02XA Contusion of left knee, initial encounter; S80.12XA Contusion of left lower leg, initial encounter; W01.0XXA Fall on same level from slipping, tripping and stumbling without subsequent striking against object, initial encounter; F01.50 Vascular dementia, unspecified severity, without behavioral disturbance, psychotic disturbance, mood disturbance, and anxiety